=== PATIENT | male | born 1945 | race Caucasian/White ===

== ENCOUNTER → 2017-01-20 | Outpatient (REF) | payer OTHER ==
[~2017-01-20] MED LIST: ASPI81TA45; FISH1000; FLEXERIL; HYDROCODONE; MULTIVIT; NEUR300C; PERC5TAB8; PREVACID; VITAMIN D; ZEST20TA4; ZOCO40TA
[2017-01-20 19:25] LABS: ANION GAP 9 MEQ/L (8-16); BLOOD UREA NITROGEN 21 MG/DL (7-18); CALCIUM LEVEL 9.3 MG/DL (8.8-10.2); CARBON DIOXIDE LEVEL 28 MEQ/L (21-32); CHLORIDE LEVEL 104 MEQ/L (98-107); CREATININE FOR GFR 0.72 MG/DL (0.70-1.30); GLOMERULAR FILTRATION RATE > 60.0 (>49); GLUCOSE, FASTING 105 MG/DL (80-110); POTASSIUM SERUM 4.7 MEQ/L (3.5-5.1); SODIUM LEVEL 141 MEQ/L (136-145)
== END ==
LOC: M SFHCPLAZ 11:24
PROVIDERS: ATTEND Family Medicine
DX: I10 Essential (primary) hypertension (principal)

== ENCOUNTER → 2017-02-18 | Outpatient (CLI) | payer OTHER ==
--- NOTE | 2017-02-18 11:49 | REP ---
Clinical: Lung screening. History smoking. Comparison: None Technique: Axial low-dose noncontrast images from the thoracic inlet to the upper abdomen using lung screening technique. Findings: Scattered bilateral partially calcified pleural plaques suggest sequelae of asbestosis. Multiple noncalcified nodules primarily identified in the right lower lobe measure up to 8.6 mm. No consolidation, pleural effusion or pneumothorax. Tracheobronchial tree is patent. Mediastinum demonstrates atherosclerotic changes of the coronary arteries without cardiomegaly. Impression: Lung-RADS category 4A-S. Few noncalcified nodules measuring up to 8.6 mm warrant 3-month follow-up and/or PET-CT. 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 Signed by Johny Sepulveda MD 02/18/2017 11:40 A
== END ==
LOC: M RAD 10:56
PROVIDERS: ATTEND Family Medicine
DX: Z72.0 Tobacco use (principal); Z12.2 Encounter for screening for malignant neoplasm of respiratory organs

== ENCOUNTER → 2017-05-14 | Outpatient (REF) | payer OTHER ==
[2017-05-14 13:34] LABS: BASO % 0.4 % (0.0-1.0); EOS # 0.2 K/mm3 (0.0-0.50); EOS % 2.4 % (0.0-3.0); LARGE UNSTAINED CELL # 0.1 K/mm3 (0.0-0.4); LARGE UNSTAINED CELL % 1.5 % (0.0-4.0); LYMPH # 1.7 K/mm3 (1.5-4.5); LYMPH % 15.5 % (24.0-44.0); MEAN CORPUSCULAR HEMOGLOBIN 31.3 pg (27.0-33.0); MEAN CORPUSCULAR HGB CONC 33.7 g/dl (32.0-36.5); MONO # 0.5 K/mm3 (0.0-0.8); MONO % 5.3 % (0.0-5.0); NEUTROPHILS # 7.5 K/mm3 (1.8-7.7); NEUTROPHILS % 75.1 % (36.0-66.0); PLATELET COUNT, AUTOMATED 293 k/mm3 (150-450); RED CELL DISTRIBUTION WIDTH 13.5 % (11.5-14.5)
[2017-05-14 13:50] LABS: ALBUMIN 3.6 GM/DL (3.2-5.2); ALBUMIN/GLOBULIN RATIO 1.13 (1.00-1.93); ALKALINE PHOSPHATASE 96 U/L (45-117); ALT/SGPT 37 U/L (12-78); ANION GAP 10 MEQ/L (8-16); AST/SGOT 25 U/L (15-37); BILIRUBIN,TOTAL 0.4 MG/DL (0.2-1.0); BLOOD UREA NITROGEN 18 MG/DL (7-18); CALCIUM LEVEL 8.5 MG/DL (8.8-10.2); CARBON DIOXIDE LEVEL 26 MEQ/L (21-32); CHLORIDE LEVEL 103 MEQ/L (98-107); CHOLESTEROL LEVEL 164 MG/DL (<200); CREATININE FOR GFR 0.81 MG/DL (0.70-1.30); GLOMERULAR FILTRATION RATE > 60.0 (>42); GLUCOSE, FASTING 146 MG/DL (83-110); POTASSIUM SERUM 4.4 MEQ/L (3.5-5.1); SODIUM LEVEL 139 MEQ/L (136-145); TOTAL PROTEIN 6.8 GM/DL (6.4-8.2); TRIGLYCERIDES LEVEL 278 MG/DL (<150)
== END ==
LOC: M SFHCPLAZ 11:35
PROVIDERS: ATTEND Nurse Practitioner Family
DX: I10 Essential (primary) hypertension (principal); R73.01 Impaired fasting glucose; E78.5 Hyperlipidemia, unspecified

== ENCOUNTER → 2017-05-28 | Outpatient (CLI) | payer OTHER ==
[~2017-05-28] MED LIST changes: +ISOVUE-370 76% 100ML VIAL (Q9967) As Ordered ONE
--- NOTE | 2017-05-28 14:46 | REP ---
Clinical: Follow-up pulmonary nodule. Comparison: 02/18/2017. Technique: Axial contrast enhanced images from the thoracic inlet to the upper abdomen using 100 ml Isovue 370 intravenous contrast material with coronal and sagittal re-formations. Findings: Scattered partially calcified pleural plaques are again noted along with stable few small noncalcified nodules - the largest again identified in the posterior periphery of the right lower lobe measuring 8 mm diameter. No new consolidation, significant nodule or mass lesion is appreciated. No pleural effusion/reaction. Tracheobronchial tree is patent. Mediastinum demonstrates atherosclerotic changes to the thoracic aorta and coronary arteries without aortic aneurysm or cardiomegaly. No pericardial effusion is appreciated. A suspected small pericardial cyst versus bronchogenic cyst posterior to the heart measures 4.4 x 2.5 cm and is unchanged. Surrounding musculoskeletal structures are intact and without focal osseous abnormality. Limited upper abdomen demonstrates normal bilateral adrenal glands. Impression: 1. Stable pleuroparenchymal changes including scattered partially calcified pleural plaques and small nodules up to 8 mm in the posterior right lower lobe. 2. No new acute process identified. 3. Stable cystic structure in the middle mediastinum posterior to the heart appears relatively benign and may represent bronchogenic cyst versus pericardial cyst. Signed by Johny Sepulveda MD 05/28/2017 02:37 P
== END ==
LOC: M RAD 13:30
PROVIDERS: ATTEND Family Medicine
DX: J92.0 Pleural plaque with presence of asbestos (principal); R93.8 Abnormal findings on diagnostic imaging of other specified body structures
CPT/HCPCS: 71260; Q9967

== ENCOUNTER → 2017-08-21 | Outpatient (REF) | payer OTHER ==
[~2017-08-21] MED LIST changes: -ISOVUE-370 76% 100ML VIAL (Q9967) As Ordered ONE
== END ==
LOC: M LAB REF 07:26
PROVIDERS: ATTEND Family Medicine
DX: R73.9 Hyperglycemia, unspecified (principal)

== ENCOUNTER → 2017-11-24 | Outpatient (REF) | payer OTHER ==
[2017-11-24 17:14] LABS: ESTIMATED AVERAGE GLUCOSE 137 MG/DL (60-110); HEMOGLOBIN A1c 6.4 %
[2017-11-24 17:20] LABS: CREATININE, URINE 60.1 MG/DL; MAU/CREAT RATIO 13.3 MCG/MG (0.0-30.0)
== END ==
LOC: M SFHCPLAZ 09:41
DX: E11.9 Type 2 diabetes mellitus without complications (principal)
CPT/HCPCS: 83036

== ENCOUNTER 2018-02-14 20:28 | Inpatient (IN) | payer OTHER ==
[2018-02-14 21:09] LABS: BASO # 0.1 10^3/uL (0.0-0.2); BASO % 0.2 % (0.0-1.0); EOS % 0.1 % (0.0-3.0); HEMATOCRIT 50.2 % (42.0-52.0); IMMATURE GRANULOCYTE % 0.9 % (0-3.0); LYMPH # 2.6 10^3/uL (1.5-4.5); LYMPH % 10.7 % (24.0-44.0); MEAN CORPUSCULAR HEMOGLOBIN 30.5 pg (27.0-33.0); MEAN CORPUSCULAR HGB CONC 33.9 g/dl (32.0-36.5); MONO % 9.6 % (0.0-5.0); NEUTROPHILS # 18.9 10^3/uL (1.8-7.7); NEUTROPHILS % 78.5 % (36.0-66.0); PLATELET COUNT, AUTOMATED 274 10^3/uL (150-450); RED BLOOD COUNT 5.58 10^6/uL (4.30-6.10); RED CELL DISTRIBUTION WIDTH 14.1 % (11.5-14.5)
[2018-02-14 21:21] LABS: INR 1.01; PROTHROMBIN TIME 13.4 SECONDS (12.4-14.5)
[2018-02-14 21:22] LABS: PARTIAL THROMBOPLASTIN TIME 36.7 SECONDS (26.8-37.9)
[2018-02-14] MEDS: NS 1,000 ML IV (21:24)
[2018-02-14] MEDS: MORPHINE 4 MG/ML 1ML VIAL (J2270) IV ×2 (21:25→22:26)
[2018-02-14] MEDS: ONDANSETRON 4MG/2ML VIAL (J2405) IV (21:25)
[2018-02-14 21:33] LABS: ALBUMIN 3.6 GM/DL (3.2-5.2); ALBUMIN/GLOBULIN RATIO 0.82 (1.00-1.93); ALKALINE PHOSPHATASE 97 U/L (45-117); ALT/SGPT 22 U/L (12-78); ANION GAP 9 MEQ/L (8-16); AST/SGOT 11 U/L (7-37); BILIRUBIN,DIRECT 0.3 MG/DL (0.0-0.2); BILIRUBIN,TOTAL 1.2 MG/DL (0.2-1.0); BLOOD UREA NITROGEN 21 MG/DL (7-18); CARBON DIOXIDE LEVEL 27 MEQ/L (21-32); CHLORIDE LEVEL 103 MEQ/L (98-107); CREATININE FOR GFR 0.93 MG/DL (0.70-1.30); GLOMERULAR FILTRATION RATE > 60.0 (>42); GLUCOSE, FASTING 103 MG/DL (70-100); LIPASE 51 U/L (73-393); POTASSIUM SERUM 3.7 MEQ/L (3.5-5.1); SODIUM LEVEL 139 MEQ/L (136-145)
[2018-02-14 21:35] LABS: MONO # 2.3 10^3/uL (0.0-0.8)
[2018-02-14 21:36] LABS: POSITIVE DIFF POS FLAG
[2018-02-14] MEDS ORDERED: ISOVUE-370 76% 100ML VIAL (Q9967) As Ordered (21:44)
[2018-02-14] MEDS: NS 3,070 ML in APPROPRIATE DILUENT 1 EA IV (23:30)
[2018-02-14] MEDS: CIPROFLOXACIN 400 MG in APPROPRIATE DILUENT 1 EA IV (23:35)
[2018-02-14 23:40] LABS: LACTIC ACID SEPSIS PROTOCOL 1.3 MMOL/L (0.4-2.0)
[2018-02-15] MEDS ORDERED: ONDANSETRON 4MG/2ML VIAL (J2405) IV (00:15)
[2018-02-15] MEDS: metroNIDAZOLE 500 MG in APPROPRIATE DILUENT 1 EA IV (01:45)
[2018-02-15] MEDS: NS 1,000 ML IV ×2 (02:55→10:08)
[2018-02-15] MEDS: MORPHINE 4 MG/ML 1ML VIAL (J2270) IV ×5 (04:12→20:10)
[2018-02-15 08:09] LABS: BASO % 0.1 % (0.0-1.0); EOS % 0.1 % (0.0-3.0); HEMATOCRIT 43.4 % (42.0-52.0); IMMATURE GRANULOCYTE % 0.6 % (0-3.0); LYMPH # 1.3 10^3/uL (1.5-4.5); LYMPH % 5.6 % (24.0-44.0); MEAN CORPUSCULAR HEMOGLOBIN 30.5 pg (27.0-33.0); MEAN CORPUSCULAR HGB CONC 33.6 g/dl (32.0-36.5); MEAN CORPUSCULAR VOLUME 90.6 fl (80.0-96.0); NEUTROPHILS # 18.7 10^3/uL (1.8-7.7); NEUTROPHILS % 82.6 % (36.0-66.0); PLATELET COUNT, AUTOMATED 237 10^3/uL (150-450); RED BLOOD COUNT 4.79 10^6/uL (4.30-6.10); RED CELL DISTRIBUTION WIDTH 14.1 % (11.5-14.5); WHITE BLOOD COUNT 22.7 10^3/uL (4.0-10.0)
[2018-02-15 08:36] LABS: ALBUMIN 2.9 GM/DL (3.2-5.2); ALBUMIN/GLOBULIN RATIO 0.97 (1.00-1.93); ALKALINE PHOSPHATASE 80 U/L (45-117); ALT/SGPT 17 U/L (12-78); ANION GAP 8 MEQ/L (8-16); AST/SGOT 8 U/L (7-37); BILIRUBIN,TOTAL 1.1 MG/DL (0.2-1.0); BLOOD UREA NITROGEN 15 MG/DL (7-18); CALCIUM LEVEL 7.9 MG/DL (8.8-10.2); CARBON DIOXIDE LEVEL 26 MEQ/L (21-32); CHLORIDE LEVEL 107 MEQ/L (98-107); GLOMERULAR FILTRATION RATE > 60.0 (>42); GLUCOSE, FASTING 125 MG/DL (70-100); POTASSIUM SERUM 3.9 MEQ/L (3.5-5.1); SODIUM LEVEL 141 MEQ/L (136-145); TOTAL PROTEIN 5.9 GM/DL (6.4-8.2)
[2018-02-15 08:45] LABS: HEMOGLOBIN 14.6 g/dl (14.0-18.0); MONO # 2.5 10^3/uL (0.0-0.8); POSITIVE DIFF POS FLAG
[2018-02-15] MEDS: ENOXAPARIN 40 MG/0.4 ML SYRINGE (J1650) SC (09:00)
[2018-02-15 09:23] LABS: LACTIC ACID SEPSIS PROTOCOL 1.3 MMOL/L (0.4-2.0)
[2018-02-15] MEDS: PANTOPRAZOLE 40MG INJ (PROTONIX) (C9113) IV (09:35)
[2018-02-15] MEDS: metroNIDAZOLE 750 MG in APPROPRIATE DILUENT 1 EA IV ×2 (11:30→17:44)
[2018-02-15 11:52] LABS: HEMOGLOBIN 14.1 g/dl (14.0-18.0); MEAN CORPUSCULAR HEMOGLOBIN 30.5 pg (27.0-33.0); MEAN CORPUSCULAR HGB CONC 33.6 g/dl (32.0-36.5); MEAN CORPUSCULAR VOLUME 90.7 fl (80.0-96.0); PLATELET COUNT, AUTOMATED 227 10^3/uL (150-450); RED BLOOD COUNT 4.63 10^6/uL (4.30-6.10); RED CELL DISTRIBUTION WIDTH 14.2 % (11.5-14.5)
[2018-02-15] MEDS: CIPROFLOXACIN 400 MG in APPROPRIATE DILUENT 1 EA IV ×2 (12:52→23:29)
[2018-02-15 17:20] LABS: HEMOGLOBIN 13.7 g/dl (14.0-18.0); MEAN CORPUSCULAR HEMOGLOBIN 30.7 pg (27.0-33.0); MEAN CORPUSCULAR HGB CONC 33.4 g/dl (32.0-36.5); MEAN CORPUSCULAR VOLUME 91.9 fl (80.0-96.0); PLATELET COUNT, AUTOMATED 200 10^3/uL (150-450); RED BLOOD COUNT 4.46 10^6/uL (4.30-6.10); RED CELL DISTRIBUTION WIDTH 14.3 % (11.5-14.5); WHITE BLOOD COUNT 20.8 10^3/uL (4.0-10.0)
[2018-02-15 23:25] LABS: HEMATOCRIT 39.1 % (42.0-52.0); HEMOGLOBIN 12.9 g/dl (14.0-18.0); MEAN CORPUSCULAR HEMOGLOBIN 30.4 pg (27.0-33.0); MEAN CORPUSCULAR VOLUME 92.2 fl (80.0-96.0); PLATELET COUNT, AUTOMATED 200 10^3/uL (150-450); RED BLOOD COUNT 4.24 10^6/uL (4.30-6.10); RED CELL DISTRIBUTION WIDTH 14.1 % (11.5-14.5); WHITE BLOOD COUNT 17.9 10^3/uL (4.0-10.0)
[2018-02-16] MEDS: metroNIDAZOLE 750 MG in APPROPRIATE DILUENT 1 EA IV ×3 (00:28→17:09)
[2018-02-16] MEDS: MORPHINE 4 MG/ML 1ML VIAL (J2270) IV ×3 (00:38→05:45)
[2018-02-16] MEDS: NS 1,000 ML IV ×3 (05:34→15:01)
[2018-02-16 06:09] LABS: HEMATOCRIT 38.7 % (42.0-52.0); HEMOGLOBIN 12.8 g/dl (14.0-18.0); MEAN CORPUSCULAR HEMOGLOBIN 30.7 pg (27.0-33.0); MEAN CORPUSCULAR HGB CONC 33.1 g/dl (32.0-36.5); MEAN CORPUSCULAR VOLUME 92.8 fl (80.0-96.0); PLATELET COUNT, AUTOMATED 202 10^3/uL (150-450); RED BLOOD COUNT 4.17 10^6/uL (4.30-6.10); WHITE BLOOD COUNT 17.4 10^3/uL (4.0-10.0)
[2018-02-16 06:24] LABS: ANION GAP 6 MEQ/L (8-16); BLOOD UREA NITROGEN 13 MG/DL (7-18); CALCIUM LEVEL 8.1 MG/DL (8.8-10.2); CARBON DIOXIDE LEVEL 26 MEQ/L (21-32); CHLORIDE LEVEL 109 MEQ/L (98-107); CREATININE FOR GFR 0.46 MG/DL (0.70-1.30); GLOMERULAR FILTRATION RATE > 60.0 (>42); GLUCOSE, FASTING 97 MG/DL (70-100); POTASSIUM SERUM 3.6 MEQ/L (3.5-5.1); SODIUM LEVEL 141 MEQ/L (136-145)
[2018-02-16] MEDS: ENOXAPARIN 40 MG/0.4 ML SYRINGE (J1650) SC (09:00)
[2018-02-16] MEDS: NORCO, ANEXSIA 5/325MG TABLET (HYDROcodone/ACETAMINOPHEN) PO ×3 (09:09→21:05)
[2018-02-16] MEDS: PANTOPRAZOLE 40MG INJ (PROTONIX) (C9113) IV (09:10)
[2018-02-16 11:46] LABS: HEMATOCRIT 39.4 % (42.0-52.0); MEAN CORPUSCULAR HEMOGLOBIN 30.1 pg (27.0-33.0); MEAN CORPUSCULAR VOLUME 91.2 fl (80.0-96.0); PLATELET COUNT, AUTOMATED 214 10^3/uL (150-450); RED BLOOD COUNT 4.32 10^6/uL (4.30-6.10); WHITE BLOOD COUNT 16.4 10^3/uL (4.0-10.0)
[2018-02-16] MEDS: CIPROFLOXACIN 400 MG in APPROPRIATE DILUENT 1 EA IV (12:18)
[2018-02-16] MEDS: NICOTINE 21MG/24HR 1 EA TRANSDERMAL TD (15:02)
[2018-02-16 17:21] LABS: HEMATOCRIT 37.6 % (42.0-52.0); HEMOGLOBIN 12.4 g/dl (14.0-18.0); MEAN CORPUSCULAR HEMOGLOBIN 30.4 pg (27.0-33.0); MEAN CORPUSCULAR VOLUME 92.2 fl (80.0-96.0); PLATELET COUNT, AUTOMATED 215 10^3/uL (150-450); RED BLOOD COUNT 4.08 10^6/uL (4.30-6.10); RED CELL DISTRIBUTION WIDTH 13.9 % (11.5-14.5); WHITE BLOOD COUNT 14.6 10^3/uL (4.0-10.0)
[2018-02-16 23:24] LABS: HEMATOCRIT 37.1 % (42.0-52.0); HEMOGLOBIN 12.1 g/dl (14.0-18.0); MEAN CORPUSCULAR HEMOGLOBIN 29.9 pg (27.0-33.0); MEAN CORPUSCULAR HGB CONC 32.6 g/dl (32.0-36.5); MEAN CORPUSCULAR VOLUME 91.6 fl (80.0-96.0); PLATELET COUNT, AUTOMATED 215 10^3/uL (150-450); RED BLOOD COUNT 4.05 10^6/uL (4.30-6.10); RED CELL DISTRIBUTION WIDTH 13.8 % (11.5-14.5); WHITE BLOOD COUNT 12.4 10^3/uL (4.0-10.0)
[2018-02-17] MEDS: CIPROFLOXACIN 400 MG in APPROPRIATE DILUENT 1 EA IV ×2 (00:32→12:16)
[2018-02-17] MEDS: metroNIDAZOLE 750 MG in APPROPRIATE DILUENT 1 EA IV ×3 (01:31→17:38)
[2018-02-17] MEDS: NS 1,000 ML IV ×4 (01:32→22:29)
[2018-02-17] MEDS: NORCO, ANEXSIA 5/325MG TABLET (HYDROcodone/ACETAMINOPHEN) PO ×4 (03:46→21:58)
[2018-02-17 05:45] LABS: HEMATOCRIT 36.6 % (42.0-52.0); MEAN CORPUSCULAR HEMOGLOBIN 29.9 pg (27.0-33.0); MEAN CORPUSCULAR HGB CONC 32.8 g/dl (32.0-36.5); MEAN CORPUSCULAR VOLUME 91.3 fl (80.0-96.0); PLATELET COUNT, AUTOMATED 211 10^3/uL (150-450); RED BLOOD COUNT 4.01 10^6/uL (4.30-6.10); RED CELL DISTRIBUTION WIDTH 13.7 % (11.5-14.5); WHITE BLOOD COUNT 11.1 10^3/uL (4.0-10.0)
[2018-02-17 06:03] LABS: ANION GAP 8 MEQ/L (8-16); BLOOD UREA NITROGEN 12 MG/DL (7-18); CALCIUM LEVEL 7.8 MG/DL (8.8-10.2); CARBON DIOXIDE LEVEL 25 MEQ/L (21-32); CHLORIDE LEVEL 109 MEQ/L (98-107); CREATININE FOR GFR 0.43 MG/DL (0.70-1.30); GLOMERULAR FILTRATION RATE > 60.0 (>42); GLUCOSE, FASTING 91 MG/DL (70-100); POTASSIUM SERUM 3.3 MEQ/L (3.5-5.1); SODIUM LEVEL 142 MEQ/L (136-145)
[2018-02-17] MEDS: ENOXAPARIN 40 MG/0.4 ML SYRINGE (J1650) SC (09:00)
[2018-02-17] MEDS: PANTOPRAZOLE 40MG INJ (PROTONIX) (C9113) IV (09:40)
[2018-02-17] MEDS: NICOTINE 21MG/24HR 1 EA TRANSDERMAL TD (09:41)
[2018-02-17] MEDS ORDERED: ISOVUE-370 76% 100ML VIAL (Q9967) As Ordered (10:01)
[2018-02-17 11:42] LABS: MAGNESIUM LEVEL 1.9 MG/DL (1.8-2.4)
[2018-02-17] MEDS: POTASSIUM CHLORIDE 10 MEQ SR TABLET PO ×2 (12:16→15:50)
[2018-02-18] MEDS: CIPROFLOXACIN 400 MG in APPROPRIATE DILUENT 1 EA IV ×3 (00:18→23:35)
[2018-02-18] MEDS: metroNIDAZOLE 750 MG in APPROPRIATE DILUENT 1 EA IV ×3 (01:28→16:39)
[2018-02-18] MEDS: **hydrALAZINE** 10 MG TAB PO (03:44)
[2018-02-18] MEDS: NORCO, ANEXSIA 5/325MG TABLET (HYDROcodone/ACETAMINOPHEN) PO ×4 (03:45→23:35)
[2018-02-18 06:36] LABS: ANION GAP 8 MEQ/L (8-16); BLOOD UREA NITROGEN 7 MG/DL (7-18); CALCIUM LEVEL 8.1 MG/DL (8.8-10.2); CARBON DIOXIDE LEVEL 25 MEQ/L (21-32); CHLORIDE LEVEL 107 MEQ/L (98-107); CREATININE FOR GFR 0.49 MG/DL (0.70-1.30); GLOMERULAR FILTRATION RATE > 60.0 (>42); GLUCOSE, FASTING 97 MG/DL (70-100); POTASSIUM SERUM 3.6 MEQ/L (3.5-5.1); SODIUM LEVEL 140 MEQ/L (136-145)
[2018-02-18] MEDS: NS 1,000 ML IV (08:29)
[2018-02-18] MEDS: NICOTINE 21MG/24HR 1 EA TRANSDERMAL TD (08:30)
[2018-02-18] MEDS: PANTOPRAZOLE 40MG INJ (PROTONIX) (C9113) IV (08:30)
[2018-02-18] MEDS: ENOXAPARIN 40 MG/0.4 ML SYRINGE (J1650) SC (09:00)
[2018-02-19] MEDS: metroNIDAZOLE 750 MG in APPROPRIATE DILUENT 1 EA IV ×2 (00:54→09:33)
[2018-02-19] MEDS: NORCO, ANEXSIA 5/325MG TABLET (HYDROcodone/ACETAMINOPHEN) PO ×3 (05:54→20:28)
[2018-02-19 06:00] LABS: HEMATOCRIT 40.3 % (42.0-52.0); HEMOGLOBIN 13.8 g/dl (13.5-17.5); MEAN CORPUSCULAR HEMOGLOBIN 30.5 pg (27.0-33.0); MEAN CORPUSCULAR HGB CONC 34.2 g/dl (32.0-36.5); PLATELET COUNT, AUTOMATED 269 10^3/uL (150-450); RED BLOOD COUNT 4.53 10^6/uL (4.30-6.10); RED CELL DISTRIBUTION WIDTH 13.2 % (11.5-14.5); WHITE BLOOD COUNT 8.5 10^3/uL (4.0-10.0)
[2018-02-19 06:24] LABS: ANION GAP 5 MEQ/L (8-16); BLOOD UREA NITROGEN 6 MG/DL (7-18); CALCIUM LEVEL 8.3 MG/DL (8.8-10.2); CARBON DIOXIDE LEVEL 29 MEQ/L (21-32); CHLORIDE LEVEL 106 MEQ/L (98-107); CREATININE FOR GFR 0.56 MG/DL (0.70-1.30); GLOMERULAR FILTRATION RATE > 60.0 (>42); GLUCOSE, FASTING 101 MG/DL (70-100); POTASSIUM SERUM 3.3 MEQ/L (3.5-5.1); SODIUM LEVEL 140 MEQ/L (136-145)
[2018-02-19] MEDS: ENOXAPARIN 40 MG/0.4 ML SYRINGE (J1650) SC (09:32)
[2018-02-19] MEDS: PANTOPRAZOLE 40MG INJ (PROTONIX) (C9113) IV (09:32)
[2018-02-19] MEDS: NICOTINE 21MG/24HR 1 EA TRANSDERMAL TD (09:33)
[2018-02-19] MEDS: POTASSIUM CHLORIDE 10 MEQ SR TABLET PO (12:39)
[2018-02-19] MEDS: LOSARTAN 50 MG TAB PO (12:40)
[2018-02-19] MEDS ORDERED: fentaNYL 100 MCG/2 ML INJECTION (J3010) As Ordered (15:04)
[2018-02-19] MEDS ORDERED: MIDAZOLAM INJ 2 MG/2 ML VIAL (J2250) As Ordered (15:04)
[2018-02-19] MEDS ORDERED: PROTAMINE SULF INJ 50 MG/5 ML VIAL (J2720) As Ordered (15:13)
[2018-02-20] MEDS: NORCO, ANEXSIA 5/325MG TABLET (HYDROcodone/ACETAMINOPHEN) PO ×3 (01:35→12:37)
[2018-02-20 06:15] LABS: HEMATOCRIT 43.6 % (42.0-52.0); HEMOGLOBIN 14.6 g/dl (13.5-17.5); MEAN CORPUSCULAR HEMOGLOBIN 30.2 pg (27.0-33.0); MEAN CORPUSCULAR HGB CONC 33.5 g/dl (32.0-36.5); MEAN CORPUSCULAR VOLUME 90.3 fl (80.0-96.0); PLATELET COUNT, AUTOMATED 298 10^3/uL (150-450); RED BLOOD COUNT 4.83 10^6/uL (4.30-6.10); RED CELL DISTRIBUTION WIDTH 13.3 % (11.5-14.5); WHITE BLOOD COUNT 8.5 10^3/uL (4.0-10.0)
[2018-02-20 06:29] LABS: ANION GAP 7 MEQ/L (8-16); BLOOD UREA NITROGEN 9 MG/DL (7-18); CALCIUM LEVEL 8.8 MG/DL (8.8-10.2); CARBON DIOXIDE LEVEL 27 MEQ/L (21-32); CHLORIDE LEVEL 105 MEQ/L (98-107); CREATININE FOR GFR 0.54 MG/DL (0.70-1.30); GLOMERULAR FILTRATION RATE > 60.0 (>42); GLUCOSE, FASTING 99 MG/DL (70-100); POTASSIUM SERUM 3.6 MEQ/L (3.5-5.1); SODIUM LEVEL 139 MEQ/L (136-145)
[2018-02-20] MEDS: PANTOPRAZOLE 40MG INJ (PROTONIX) (C9113) IV (10:37)
[2018-02-20] MEDS: LOSARTAN 50 MG TAB PO (10:37)
[2018-02-20] MEDS: ENOXAPARIN 40 MG/0.4 ML SYRINGE (J1650) SC (10:38)
[2018-02-20] MEDS: NICOTINE 21MG/24HR 1 EA TRANSDERMAL TD (10:39)
== END 2018-02-20 12:40 | disposition home or self-care (01) | DRG 357 ==
LOC: M ED INP 02-15 00:08 → M MSPAV 02-15 15:08 → M ED 20:28
PROC: 04753DZ Dilation of Superior Mesenteric Artery with Intraluminal Device, Percutaneous Approach (ICD-10-PCS; principal; 2018-02-19)
PROC: 04713DZ Dilation of Celiac Artery with Intraluminal Device, Percutaneous Approach (ICD-10-PCS; 2018-02-19)
DX: K55.059 Acute (reversible) ischemia of intestine, part and extent unspecified (principal); K62.5 Hemorrhage of anus and rectum; K55.1 Chronic vascular disorders of intestine; I10 Essential (primary) hypertension; I70.1 Atherosclerosis of renal artery; E78.5 Hyperlipidemia, unspecified; R73.03 Prediabetes; M54.5 Low back pain; F17.210 Nicotine dependence, cigarettes, uncomplicated; Z79.82 Long term (current) use of aspirin; Z79.899 Other long term (current) drug therapy; Z79.891 Long term (current) use of opiate analgesic; E87.6 Hypokalemia

== ENCOUNTER → 2018-04-26 | Outpatient (REF) | payer OTHER ==
[2018-04-26 16:41] LABS: ESTIMATED AVERAGE GLUCOSE 131 MG/DL (60-110); HEMOGLOBIN A1c 6.2 %
== END ==
LOC: M SFHCPLAZ 11:59
DX: E11.9 Type 2 diabetes mellitus without complications (principal)
CPT/HCPCS: 83036

== ENCOUNTER → 2018-08-25 | Outpatient (REF) | payer OTHER ==
[2018-08-25 15:27] LABS: CHOLESTEROL LEVEL 178 MG/DL (<200); CHOLESTEROL RISK RATIO 5.562 (<5); HDL CHOLESTEROL 32 MG/DL (>40); LDL CHOLESTEROL 91 MG/DL (<100); NON-HDL-C 146 MG/DL; TRIGLYCERIDES LEVEL 275 MG/DL (<150)
[2018-08-25 15:39] LABS: CREATININE, URINE 95.1 MG/DL; MALB URINE SIEMENS 17.9 MG/L
[2018-08-25 15:42] LABS: MAU/CREAT RATIO 18.8 MCG/MG (0.0-30.0)
== END ==
LOC: M SFHCPLAZ 10:25
DX: K55.9 Vascular disorder of intestine, unspecified (principal); I73.9 Peripheral vascular disease, unspecified; E11.9 Type 2 diabetes mellitus without complications; I10 Essential (primary) hypertension

== ENCOUNTER → 2018-08-25 | Outpatient (CLI) | payer OTHER | LOC: M LRY 10:27 | DX: M19.041 Primary osteoarthritis, right hand (principal); K55.9 Vascular disorder of intestine, unspecified; I73.9 Peripheral vascular disease, unspecified; E11.9 Type 2 diabetes mellitus without complications; I10 Essential (primary) hypertension | CPT/HCPCS: 80061 ==

== ENCOUNTER → 2018-09-27 | Outpatient (CLI) | payer OTHER | LOC: M RAD 09:04 | DX: Z12.2 Encounter for screening for malignant neoplasm of respiratory organs (principal); Z87.891 Personal history of nicotine dependence; Z77.090 Contact with and (suspected) exposure to asbestos | CPT/HCPCS: G0297 ==

== ENCOUNTER → 2018-10-15 | Outpatient (CLI) | payer OTHER | LOC: M LRY 13:17 | DX: S79.911A Unspecified injury of right hip, initial encounter (principal); S39.92XA Unspecified injury of lower back, initial encounter; X58.XXXA Exposure to other specified factors, initial encounter; Y92.89 Other specified places as the place of occurrence of the external cause; M85.88 Other specified disorders of bone density and structure, other site; M25.78 Osteophyte, vertebrae | CPT/HCPCS: 72110; G0463 ==

== ENCOUNTER → 2018-12-27 | Outpatient (REF) | payer MEDICARE ==
[~2018-12-27] MED LIST changes: +ASPI1TAB PO; +ATOR80TA59 PO; +CLOP75TA2 PO; +CYCL10TA PO; +HYDR-3719 PO; +LIPI10TA PO; +LOSA100T50 PO; +NICO21PAT TD; +PREV1CAP PO; +blood pressure med
[2018-12-27 11:42] LABS: HEMOGLOBIN A1c 6.7 %
== END ==
LOC: M SFHCPLAZ 08:55
PROVIDERS: ATTEND Family Medicine
DX: E11.9 Type 2 diabetes mellitus without complications (principal)
CPT/HCPCS: 36415; 83036; G0463

== ENCOUNTER → 2019-01-07 | Outpatient (CLI) | payer MEDICARE ==
--- NOTE | 2019-01-07 10:30 | REP ---
Chest two views HISTORY: Cough Comparison: 04/17/2013 A small calcified density is present in the right upper lobe. The left lung is clear. The heart is normal in size. The pulmonary vasculature is normal in appearance. The bony structure is intact. IMPRESSION: No acute disease. Electronically Signed by Keegan Vaughn MD 01/07/2019 10:21 A
== END ==
LOC: M LRY 09:56
PROVIDERS: ATTEND Family Medicine
DX: R91.8 Other nonspecific abnormal finding of lung field (principal); R05 Cough
CPT/HCPCS: 71046; 87804; 94640; G0463

== ENCOUNTER → 2019-09-06 | Outpatient (REF) | payer MEDICARE ==
[~2019-09-06] MED LIST changes: -ASPI1TAB PO; +ASPI81TA26 PO
[2019-09-06 12:40] LABS: ALBUMIN 3.6 GM/DL (3.2-5.2); ALT/SGPT 24 U/L (12-78); BILIRUBIN,TOTAL 0.4 MG/DL (0.2-1.0); BLOOD UREA NITROGEN 13 MG/DL (7-18); CALCIUM LEVEL 9.4 MG/DL (8.8-10.2); CARBON DIOXIDE LEVEL 28 MEQ/L (21-32); CHLORIDE LEVEL 104 MEQ/L (98-107); CHOLESTEROL LEVEL 167 MG/DL (<200); CHOLESTEROL RISK RATIO 4.282 (<5); CREATININE FOR GFR 0.72 MG/DL (0.70-1.30); GLOMERULAR FILTRATION RATE > 60.0 (>42); GLUCOSE, FASTING 104 MG/DL (70-100); HDL CHOLESTEROL 39 MG/DL (>40); LDL CHOLESTEROL 84 MG/DL (<100); NON-HDL-C 128 MG/DL; POTASSIUM SERUM 4.8 MEQ/L (3.5-5.1); SODIUM LEVEL 139 MEQ/L (136-145); TOTAL PROTEIN 7.3 GM/DL (6.4-8.2); TRIGLYCERIDES LEVEL 222 MG/DL (<150)
[2019-09-06 12:49] LABS: HEMOGLOBIN A1c 6.4 %
[2019-09-06 12:56] LABS: CREATININE, URINE 68.5 MG/DL; MAU/CREAT RATIO 14.5 MCG/MG (0.0-30.0)
== END ==
LOC: M SFHCPLAZ 09:47
PROVIDERS: ATTEND Family Medicine
DX: E11.9 Type 2 diabetes mellitus without complications (principal); I10 Essential (primary) hypertension; E78.2 Mixed hyperlipidemia

== ENCOUNTER → 2019-10-06 | Outpatient (CLI) | payer MEDICARE ==
--- NOTE | 2019-10-07 02:57 | REP ---
Clinical: Lung screening. History smoking. Comparison: 09/27/2018 Technique: Axial low-dose noncontrast images from the thoracic inlet to the upper abdomen using lung screening technique. Findings: The lung smith are well-aerated. Chronic changes related to asbestosis including scattered partially calcified pleural plaques and small scattered nodules throughout the bilateral lung smith remain stable. No new significant consolidation or nodule/mass appreciated. No pleural effusion. No pneumothorax. Tracheobronchial tree is patent. Mediastinal structures appear stable. Impression: Lung-RADS category II-S. Changes related to asbestosis including stable scattered noncalcified nodules up to approximately 8 mm. Electronically Signed by Johny Sepulveda MD 10/07/2019 02:50 A
== END ==
LOC: M RAD 09:48
PROVIDERS: ATTEND Family Medicine
DX: Z12.2 Encounter for screening for malignant neoplasm of respiratory organs (principal); F17.210 Nicotine dependence, cigarettes, uncomplicated

== ENCOUNTER 2020-02-20 20:43 | Inpatient (IN) | payer MEDICARE ==
[~2020-02-20] VITALS: Ht 172.7 cm; Wt 86.4 kg
[2020-02-20] MEDS ORDERED: methylPREDNISolone INJ 125 MG/2 ML VIAL (J2930) IV ONE (21:15)
[2020-02-20 21:21] LABS: BASO % 0.3 % (0.0-1.0); EOS % 0.3 % (0.0-3.0); HEMATOCRIT 45.9 % (42.0-52.0); HEMOGLOBIN 15.2 g/dl (13.5-17.5); LYMPH # 1.9 10^3/uL (1.5-5.0); LYMPH % 14.6 % (24.0-44.0); MEAN CORPUSCULAR HGB CONC 33.1 g/dl (32.0-36.5); MEAN CORPUSCULAR VOLUME 90.7 fl (80.0-96.0); MONO % 7.6 % (0.0-5.0); NEUTROPHILS % 76.7 % (36.0-66.0); PLATELET COUNT, AUTOMATED 218 10^3/uL (150-450); RED BLOOD COUNT 5.06 10^6/uL (4.30-6.10); WHITE BLOOD COUNT 13.1 10^3/uL (4.0-10.0)
[2020-02-20] MEDS: ALBUTEROL 90 MCG/ACT 8GM HFA INHALER INH SCH ×3 (21:35→22:08)
[2020-02-20 21:45] LABS: ALBUMIN 3.5 GM/DL (3.2-5.2); ALT/SGPT 37 U/L (12-78); BILIRUBIN,DIRECT 0.2 MG/DL (0.0-0.2); BILIRUBIN,TOTAL 0.6 MG/DL (0.2-1.0); BLOOD UREA NITROGEN 13 MG/DL (7-18); CALCIUM LEVEL 8.8 MG/DL (8.8-10.2); CARBON DIOXIDE LEVEL 29 MEQ/L (21-32); CHLORIDE LEVEL 101 MEQ/L (98-107); CK-MB VALUE MASS < 1.0 NG/ML (<3.6); CPK CREATINE PHOSPHOKINASE 71 U/L (39-308); CREATININE FOR GFR 0.77 MG/DL (0.70-1.30); GLOMERULAR FILTRATION RATE > 60.0 (>42); GLUCOSE, FASTING 119 MG/DL (70-100); MB/CK RELATIVE INDEX 1.41 (< OR =4); NT-PRO BNP 19 PG/ML (<125); SODIUM LEVEL 137 MEQ/L (136-145); TOTAL PROTEIN 7.2 GM/DL (6.4-8.2); TROPONIN I < 0.02 NG/ML (< 0.10)
[2020-02-20] MEDS ORDERED: OMEGCAP4 PO (23:11)
[2020-02-20] MEDS ORDERED: VITMTA PO (23:11)
[2020-02-20] MEDS ORDERED: CLOP75TA2 PO (23:11)
[2020-02-20] MEDS ORDERED: VITAD1000T PO (23:11)
--- NOTE | 2020-02-20 23:46 | REPVR ---
PROCEDURE INFORMATION: Exam: CT Chest Without Contrast Exam date and time: 02/20/2020 10:36 PM Age: 74 years old Clinical indication: Fever; Additional info: Dyspnea, fever, HX asbestosis TECHNIQUE: Imaging protocol: Computed tomography of the chest without contrast. 3D rendering: MIP and/or 3D reconstructed images were created by the technologist. Radiation optimization: All CT scans at this facility use at least one of these dose optimization techniques: automated exposure control; mA and/or kV adjustment per patient size (includes targeted exams where dose is matched to clinical indication); or iterative reconstruction. COMPARISON: CT Chest with contrast 05/28/2017 1:58 PM FINDINGS: Limited study without IV contrast. Atherosclerotic change in the thoracic aorta without dilatation. Coronary vascular calcifications are also present. Small non-specific mediastinal lymph nodes are present. No enlarged nodes. No pleural effusion, pneumothorax, cardiac enlargement, pericardial effusion or pulmonary edema. Calcified bilateral pleural plaques are present. Ill-defined airspace opacities are present in the lingula and left lower lobe, and there are scattered bilateral lung nodules in subpleural location, the largest being 7 mm in the right lower lobe, image 45. No central endobronchial lesion. Liver is decreased in density, consistent with fatty infiltration. Bony structures show no acute fracture or destructive process. IMPRESSION: Patchy infiltrates in the lingula and left lower lobe suggesting multifocal pneumonia. Underlying S best S related pleural disease. Multiple subpleural nodules, nonspecific appearance. The largest measures 7 mm. Fleischner society recommendations for followup and management of nodules smaller than 8 mm detected incidentally on screening CT: Less than or equal to 4 mm: Low risk patients- no followup needed. High risk patients- followup in 12 months. If no change, no further imaging needed. 4-6 mm nodule: Low risk patients- followup in 12 months. If no change, no further imaging needed. High risk patients- initial followup CT at 6-12 months and then at 18-24 months if no change. 6-8 mm nodule: Low-risk patients- initial followup CT in 6-12 months and then 18-24 months if no change. High risk patients- initial followup CT in 3-6 months and then at 9-12 and 24 months if no change. >8 mm: Low-risk patients- followup CTs at around 3, 9, and 24 months versus dynamic contrast-enhanced CT, PET, and/or biopsy. High-risk patients- same as for low-risk patients. Electronically signed by: Alejo Bowie On 02/20/2020 23:46:21 PM
[2020-02-21] MEDS ORDERED: DEXTROSE 50% 50 ML SYRINGE IV PRN (00:15)
[2020-02-21] MEDS ORDERED: MAALOX 30 ML SUSP *UDC PO PRN (00:15)
[2020-02-21] MEDS ORDERED: ALBUTEROL 90 MCG/ACT 8GM HFA INHALER INH PRN (00:15)
[2020-02-21] MEDS ORDERED: ACETAMINOPHEN TAB 650MG DOSE (2X325MG) PO PRN (00:15)
[2020-02-21] MEDS ORDERED: MOM 30ML SUSPENSION UDC PO PRN (00:15)
[2020-02-21] MEDS ORDERED: GLUCOSE 4 GM CHEW TABLET PO PRN (00:15)
[2020-02-21] MEDS ORDERED: GLUCAGON FOR INJ 1 MG VIAL (J1610) SC PRN (00:15)
--- NOTE | 2020-02-21 00:37 | HPEPDOC ---
General Date of Admission Date of Service: Feb 21, 2020 Chief Complaint The patient is a 74-year-old male admitted with a reason for visit of SOB. Source: Patient Exam Limitations: No limitations Timing/Duration: Day(s) (2) Severity: Moderate Associated Symptoms: Cough, Shortness of breath History of Present Illness 74-year-old male with past medical history of hypertension, hyperlipidemia for GI bleed presents for worsening dyspnea on exertion over the past 2 days. Patient reports that he was in his normal state of health approximately 2 days ago when he began to experience labored breathing. He says that he was unable to walk as far as his previous baseline. He also noted some worsening cough and some increased wheezing. Patient denied any recent fevers, chills but did endo rse having some sweats that was unusual for him. Patient reports multiple sick contacts within his house as he lives with his 9 children. There has been some upper respiratory infection-like symptoms in 3 of his kids. This morning, patient was unable to ambulate further than 20 feet and was severely short of breath. He used the albuterol inhaler approximately 4-5 times with little relief. Given his symptoms, his told him to go to the ER for further evaluation. His cough is sometimes productive with brown sputum. He denies any chest pain, palpitations, headaches, abdominal pain, diarrhea, constipation, leg swelling. Patient is a heavy smoker and still actively smoking 1 pack per day. He has 60+ pack year history at this time. Patient currently does not use oxygen at home. He currently lives with his family and is retired. 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 He denies any alcohol or drug use. Home Medications Scheduled Aspirin (Aspirin EC) 81 Mg Tab, 81 MG PO DAILY, (Reported) Atorvastatin Calcium (Atorvastatin Calcium) 80 Mg Tab, 80 MG PO QPM, (Reported) TAKES AT DINNER Cholecalciferol (Vitamin D3) (Vitamin D3) 1,000 Unit Tablet, 1,000 UNITS PO DAILY, (Reported) Clopidogrel Bisulfate (Clopidogrel) 75 Mg Tablet, 75 MG PO DAILY, (Reported) Lansoprazole (Prevacid) 30 Mg Cap, 30 MG PO DAILY, (Reported) Losartan Potassium (Losartan Potassium) 100 Mg Tab, 100 MG PO DAILY, (Reported) Multivitamins (Thera M Plus Tablet) 1 Each Tablet, 1 TAB PO DAILY, (Reported) [place]-3/Dha/Epa/Fish Oil ([place]-3 Fish Oil 1,000 mg Sfgl) 1,000 Mg Capsule, 1 CAP PO DAILY, (Reported) Scheduled PRN Cyclobenzaprine HCl (Cyclobenzaprine HCl) 10 Mg Tab, 10 MG PO QID PRN for MUSCLE SPASMS, (Reported) Hydrocodone/Acetaminophen (Hydrocodone-Acetamin 10-325 mg) 1 Tab Tab, 1 TAB PO Q3HP PRN for PAIN, (Reported) Allergies Coded Allergies: No Known Drug Allergies (Verified Allergy, Unknown, 02/20/20) Past Medical History Medical History Hypertension, hyperlipidemia, COPD not requiring home oxygen, GI bleed Surgical History Stent placement in his abdomen Family History Significant Family History: Cancer, Lung disease Father of throat cancer from heavy smoking and drinking. Mother from complications of pelvic fracture when she was elderly. Patient does not believe he had any chronic illnesses. Social History * Smoker: current smoker (more than 60+-pack-year smoking history and currently smokes 1 pack per day) Alcohol: Denies Drugs: denies Recent Travel/Sick Contacts: Reports: Recent sick contacts (3 is 9 children who currently live in the house have upper respiratory like symptoms); Denies: Recent travel Psychosocial History: No pertinent psych hx Lives with his family. Independent in all his ADLs and IADLs. Has former occupational exposure with his best dose when he was younger. A-FIB/CHADSVASC A-FIB History Current/History of A-Fib/PAF?: No Review of Systems Constitutional: Denies: Chills, Fever, Malaise, Weakness, Fatigue Eyes: Denies: Pain, Vision change, Conjunctivae inflammation ENT: Denies: Head Aches, Ear Pain, Sore Throat Skin: Denies: Rash, Lesions, Jaundice Pulmonary: Reports: Dyspnea, Cough; Denies: Pleuritic Chest Pain Cardiovascular: Denies: Chest Pain, Palpitations, Orthopnea, Edema, Lt Head edness Gastrointestinal: Denies: Nausea, Vomiting, Abdominal Pain, Diarrhea, C onstipation Genitourinary: Denies: Dysuria, Frequency Hematologic: Denies: Bruising Musculoskeletal: Reports: Back Pain (chronic), Joint Pain Neurological: Denies: Weakness, Numbness, Change in speech, Confusion Psych: Reports: Mood Normal Physical Examination General Exam: Positive: Alert, Cooperative, No Acute Distress, Other (able to speak in 5-7 word sentences with minimal shortness of breath. Appears stated age. Pleasant.) Eye Exam: Positive: PERRLA, Conjunctiva & lids normal, EOMI; Negative: Sclera icteric ENT Exam: Positive: Atraumatic, Mucous membr. moist/pink, Pharynx Normal Neck Exam: Positive: Supple, +2 carotid pulse wo bruit; Negative: JVD, thyromegaly Chest Exam: Positive: Other (diffuse expiratory wheezing noted in bilateral lung smith. Crackles appreciated in lower left lobe.) Heart Exam: Positive: Tachycardic (2 100 bpm), Regular Rhythm, Normal S1, Normal S2; Negative: Murmurs Abdomen Exam: Positive: Normal bowel sounds, Soft; Negative: Tenderness, Hepatospenomegaly Extremity Exam: Positive: Normal pulses; Negative: Clubbing, Edema Skin Exam: Positive: Nl turgor and temperature; Negative: Rash, Breakdown Neuro Exam: Positive: Normal Gait, Normal Speech, Strength at 5/5 X4 ext, Normal Tone, Cranial Nerves 3-12 NL Psych Exam: Positive: Mental status NL, Mood NL Vital Signs Vital Signs Date Time Temp Pulse Resp B/P (MAP) Pulse Ox O2 Delivery O2 Flow Rate FiO2 02/20/20 23:01 99.3 02/20/20 21:15 109 22 182/88 87 Room Air Laboratory Data Labs 24H Laboratory Tests 2 02/20/20 21:12: Immature Granulocyte % (Auto) 0.5, Neutrophils (%) (Auto) 76.7H, Lymphocytes (%) (Auto) 14.6L, Monocytes (%) (Auto) 7.6H, Eosinophils (%) (Auto) 0.3, Basophils (%) (Auto) 0.3, Neutrophils # (Auto) 10.0H, Lymphocytes # (Auto) 1.9, Monocytes # (Auto) 1.0H, Eosinophils # (Auto) 0.0, Basophils # (Auto) 0.0, Nucleated Red Blood Cells % (auto) 0.0, Anion Gap 7L, Glomerular Filtration Rate > 60.0, Lactic Acid Level 1.4, Calcium Level 8.8, Total Bilirubin 0.6, Direct Bilirubin 0.2, Aspartate Amino Transf (AST/SGOT) 29, Alanine Aminotransferase (ALT/SGPT) 37, Alkaline Phosphatase 111, Total Creatine Kinase 71, Creatine Kinase MB < 1.0, Creatine Kinase MB Relative Index 1.41, Troponin I < 0.02, CP-Jds-Y-Type Natriuretic Peptide 19, Total Protein 7.2, Albumin 3.5, Albumin/Globulin Ratio 0.95L 02/20/20 22:01: POC pH (Misc Panel) 7.376, POC Base Excess (Misc Panel) 4.0H, POC Saturated Percent O2 (Misc) 88L, POC pO2 (Misc Panel) 56.0L, POC pCO2 (Misc Panel) 49.8H, POC HCO3 (Misc Panel) 29.1H, POC Total CO2 (Misc Panel) 31.0H CBC/BMP Laboratory Tests 02/20/20 21:12 Microbiology Microbiology 02/20/20 Respiratory Panel (PCR) - Final, Complete Human Metapneumovirus 02/20/20 Blood Culture, Received Pending 02/20/20 Blood Culture, Received Pending RAD Interpretation STUDY: CT Chest Rad Actions: Report Reviewed, Films Reviewed, Discussed with the pt RAD Interpretation: Other Result Comments: (multiple pulmonary nodules and plaques noted which are unchanged from previous study in September. New mu ltifocal pneumonia noted in left lung field.) Assessment/Plan 74-year-old male presents for worsening dyspnea on exertion. Likely due to multifocal pneumonia which is causing a COPD exacerbation. We'll treat with antibiotics, steroids, and albuterol MDI. Patient currently requiring oxygen at this time. Anticipate discharge in the next 48 hours of symptoms improved. Plan / VTE VTE Prophylaxis Ordered?: Yes Plan Plan Acute hypoxic respiratory failure secondary to COPD exacerbation from multifocal pneumonia ABG consistent with hypoxic respiratory failure and currently requiring supplemental oxygen to maintain saturations greater than 90%. Patient is not on home oxygen. CT chest reveals new multifocal pneumonia that was not present compared to CT scan in September. Patient has elevated white count, low-grade temperatures. Respiratory panel reveals metapneumovirus as well. - Start ceftriaxone and azithromycin every 24 - Start Solu-Medrol 40 mg IV every 8 hours and taper down as tolerated - Supplemental O2 to maintain saturation greater than 90% - Albuterol MDI every 4 hours standing - Follow up pro-calcitonin levels - Follow up sputum culture - Tylenol for fevers - Incentive spirometer 10 times per hour - Place on insulin sliding scale while on steroids - Protonix well on steroids Hypertension Mildly hypertensive on admission. - c/w Losartan 100mg PO daily Hyperlipidemia - Continue with home dose statin Peripheral arterial disease Patient had stent placed several years ago. - Continue aspirin and Plavix Chronic back pain Patient noted to be on Vicodin at home. Ongoing chronic issue. - Percocet when necessary for pain - Flexeril when necessary for spasms Diet: Continue Current Activity: Continue Current Medications: Start Antibiotics, Start Steroids Respiratory: Increase Oxygen Anticipated Discharge: Home HEIDI GRACIA MD Feb 21, 2020 00:37
[2020-02-21] MEDS: cefTRIAXone SOD 1 GM in D5W MINI-BAG PLUS 50 ML IV SCH (02:34)
--- NOTE | 2020-02-21 02:39 | ECGEPIP ---
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
[2020-02-21 03:00] VITALS: BP 136/86
[2020-02-21] MEDS: AZITHROMYCIN INJ 500 MG, VIAL MATE ADAPTER 1 EACH in D5W 250 ML IV SCH (03:26)
[2020-02-21] MEDS: CYCLOBENZAPRINE 10MG TABLET PO PRN ×2 (03:26→17:31)
[2020-02-21] MEDS: PERCOCET 5MG/325MG TAB PO PRN ×5 (03:27→21:13)
[2020-02-21] MEDS: ALBUTEROL 90 MCG/ACT 8GM HFA INHALER INH SCH ×5 (03:35→20:11)
[2020-02-21] MEDS: methylPREDNISolone INJ 40 MG/1 ML VIAL (J2920) IV SCH ×3 (05:36→21:11)
[2020-02-21] MEDS: HEPARIN SOD (PORCINE) 5000 UNITS/ML VIAL (J1644 PER 1000UNITS) SC SCH ×3 (05:36→21:13)
[2020-02-21 06:00] VITALS: BP 138/86
[2020-02-21 08:13] LABS: HEMATOCRIT 46.8 % (42.0-52.0); HEMOGLOBIN 15.4 g/dl (13.5-17.5); MEAN CORPUSCULAR HEMOGLOBIN 29.8 pg (27.0-33.0); MEAN CORPUSCULAR HGB CONC 32.9 g/dl (32.0-36.5); MEAN CORPUSCULAR VOLUME 90.7 fl (80.0-96.0); PLATELET COUNT, AUTOMATED 226 10^3/uL (150-450); RED BLOOD COUNT 5.16 10^6/uL (4.30-6.10); WHITE BLOOD COUNT 13.5 10^3/uL (4.0-10.0)
[2020-02-21] MEDS: DOCUSATE SODIUM 100 MG CAP PO SCH ×2 (08:14→21:11)
[2020-02-21] MEDS: CLOPIDOGREL 75 MG TAB PO SCH (08:14)
[2020-02-21] MEDS: PANTOPRAZOLE 40MG TAB (PROTONIX) PO SCH (08:15)
[2020-02-21] MEDS: MULTIVITAMINS/MINERALS THERAP 1 TAB PO SCH (08:15)
[2020-02-21] MEDS: LOSARTAN 50 MG TAB PO SCH (08:18)
[2020-02-21] MEDS: ASPIRIN 81 MG ENTERIC TAB PO SCH (08:18)
--- NOTE | 2020-02-21 08:21 | REP ---
PORTABLE CHEST X-RAY: Two views. HISTORY: Dyspnea and cough. COMPARISON CHEST X-RAY: January 07, 2019. FINDINGS: There is a granulomatous calcification projecting in the right upper lobe region. Interstitial markings are slightly prominent. This is more pronounced than on the prior study but not new. There is an ill-defined focus of increased density in the left perihilar region inferiorly, which may be a early infiltrate. The heart is not enlarged. Pulmonary vasculature is not increased. There is no evidence of pleural effusion. IMPRESSION: Probable new infiltrate left base. Interstitial markings chronically. Electronically Signed by Reynold Gallardo MD 02/21/2020 10:17 A
[2020-02-21] MEDS: HumaLOG INSULIN (NovoLOG) PER UNIT SC SCH ×4 (08:51→21:00)
--- NOTE | 2020-02-21 11:04 | IPNPDOC ---
Text Note Date of Service The patient was seen on 02/21/20. NOTE SUBJECTIVE: Patient is interviewed and examined in his hospital room on 5Prat. Patient was found to be seated on his bedside, eating breakfast in no acute distress. He continues on 4L of oxygen via NC, he appears comfortable without SOB or difficulty breathing. Pt does not have an oxygen requirement at home. He reports increased hoariness but overall has been feeling better since his admission late last night. He continues to report chronic, bilateral lower back pain and d iscomfort. OBJECTIVE: VITALS: Please see below PHYSICAL EXAMINATION: GEN: Awake, alert, NAD HEENT: NC/AT, EOMI, MMM, neck supple without JVD HEART: RRR, NS1S2, No murmur LUNG: Crackles on L lower base, faint end expiratory wheezing appreciated throughout. ABD: Soft, nontender, nondistended EXTREMITIES: No LE edema/swelling, no calf tenderness. PT/Radial pulses 2+ bilaterally SKIN: No rashes/lesions NEURO: No focal deficits PSYCH: Mood and affect appropriate. ASSESSMENT: Patient is a 74-year-old male presents for worsening dyspnea on exertion. CXR and Chest CT demonstrate new multifocal PNA in left lung in the setting of previously identified multiple pulmonary nodules and plaques, unchanged from prior studies. Likely due to multifocal pneumonia which is causing a COPD exacerbation. We'll treat with antibiotics, steroids, and albuterol MDI. Patient currently requiring oxygen at this time. Anticipate discharge in the next 48 hours of symptoms improved. PLAN: #Acute hypoxic respiratory failure, suspect 2/2 to L-sided multifocal PNA * c/w ceftriaxone and azithromycin, consider transition to PO and de-escalation. * Sputum and blood cultures pending * Imaging reviewed, endocarditis with septic emboli remains on the differential, though very unlikely. No stigmata of endocarditis on examination. * Solumedrol 40 mg IV Q8H, plan to taper * Supplemental O2 to maintain oxygen between 88-92%, continue titrate down and monitor. * Pt has remained afebrile since admission. #HTN * c/w home losartan 100mg PO, PO below goal of 140/90. * continue to follow #HLD * c/w home statin #Peripheral Arterial Disease * s/p stent placement * ASA and plavix #Chronic low back pain * Percocet PRN for pain * Flexeril PRN for spasm DISPOSITION: Anticipate discharge following decreased oxygen requirement and pt remaining afebrile. CODE STATUS: FULL CODE Attending Addendum: I discussed the care and management of this patient with resident in detail and agree with the plan above. VS,Fishbone, I+O VS, Fishbone, I+O Laboratory Tests 02/20/20 21:12 02/21/20 08:02 Vital Signs Date Time Temp Pulse Resp B/P (MAP) Pulse Ox O2 Delivery O2 Flow Rate FiO2 02/21/20 10:05 20 4.0 02/21/20 08:18 141/66 02/21/20 06:00 97.8 98 92 Nasal Cannula I&O- Last 24 Hours up to 6 AM 02/21/20 06:00 Intake Total 665 ml Balance 665 ml DREAD STRICKLAND DO Feb 21, 2020 11:04 SALIMA DANG MD Feb 25, 2020 20:25
[2020-02-21 14:08] VITALS: BP 150/81
[2020-02-21] MEDS: ATORVASTATIN 20 MG TAB PO SCH (21:11)
[2020-02-21 22:00] VITALS: BP 166/78
[2020-02-22] MEDS: cefTRIAXone SOD 1 GM in D5W MINI-BAG PLUS 50 ML IV SCH (00:14)
[2020-02-22] MEDS: AZITHROMYCIN INJ 500 MG, VIAL MATE ADAPTER 1 EACH in D5W 250 ML IV SCH (01:08)
[2020-02-22] MEDS: ALBUTEROL 90 MCG/ACT 8GM HFA INHALER INH SCH ×4 (01:17→19:24)
[2020-02-22] MEDS: PERCOCET 5MG/325MG TAB PO PRN ×5 (02:29→20:35)
[2020-02-22] MEDS: methylPREDNISolone INJ 40 MG/1 ML VIAL (J2920) IV SCH ×4 (04:01→20:36)
[2020-02-22] MEDS: HEPARIN SOD (PORCINE) 5000 UNITS/ML VIAL (J1644 PER 1000UNITS) SC SCH ×3 (05:09→20:38)
[2020-02-22 05:34] LABS: HEMATOCRIT 44.6 % (42.0-52.0); HEMOGLOBIN 15.1 g/dl (13.5-17.5); MEAN CORPUSCULAR HEMOGLOBIN 30.7 pg (27.0-33.0); MEAN CORPUSCULAR HGB CONC 33.9 g/dl (32.0-36.5); MEAN CORPUSCULAR VOLUME 90.7 fl (80.0-96.0); PLATELET COUNT, AUTOMATED 279 10^3/uL (150-450); RED BLOOD COUNT 4.92 10^6/uL (4.30-6.10); WHITE BLOOD COUNT 18.8 10^3/uL (4.0-10.0)
[2020-02-22 06:00] VITALS: BP 161/80
[2020-02-22 06:04] LABS: ALBUMIN 3.2 GM/DL (3.2-5.2); ALT/SGPT 32 U/L (12-78); BILIRUBIN,TOTAL 0.4 MG/DL (0.2-1.0); BLOOD UREA NITROGEN 20 MG/DL (7-18); CARBON DIOXIDE LEVEL 27 MEQ/L (21-32); CHLORIDE LEVEL 102 MEQ/L (98-107); CREATININE FOR GFR 0.74 MG/DL (0.70-1.30); GLOMERULAR FILTRATION RATE > 60.0 (>42); GLUCOSE, FASTING 162 MG/DL (70-100); SODIUM LEVEL 137 MEQ/L (136-145); TOTAL PROTEIN 7.1 GM/DL (6.4-8.2)
[2020-02-22] MEDS: CYCLOBENZAPRINE 10MG TABLET PO PRN ×2 (06:54→13:37)
[2020-02-22] MEDS: HumaLOG INSULIN (NovoLOG) PER UNIT SC SCH ×5 (07:30→20:22)
[2020-02-22] MEDS: MULTIVITAMINS/MINERALS THERAP 1 TAB PO SCH (08:32)
[2020-02-22] MEDS: CLOPIDOGREL 75 MG TAB PO SCH (08:32)
[2020-02-22] MEDS: PANTOPRAZOLE 40MG TAB (PROTONIX) PO SCH (08:32)
[2020-02-22] MEDS: DOCUSATE SODIUM 100 MG CAP PO SCH ×2 (08:32→20:36)
[2020-02-22] MEDS: ASPIRIN 81 MG ENTERIC TAB PO SCH (08:32)
[2020-02-22] MEDS: LOSARTAN 50 MG TAB PO SCH (08:33)
--- NOTE | 2020-02-22 10:07 | IPNPDOC ---
Text Note Date of Service The patient was seen on 02/22/20. NOTE SUBJECTIVE: Patient is interviewed and examined in his hospital room on 5Prat. Patient was found to be seated in bed eating breakfast in no acute distress. He continues on 3L of oxygen via NC, he appears comfortable without SOB or difficulty breathing. Pt does not have an oxygen requirement at home. Contiues to report improvement and states that he feels ready for discharge. OBJECTIVE: VITALS: Please see below PHYSICAL EXAMINATION: GEN: Awake, alert, NAD HEENT: NC/AT, EOMI, MMM, neck supple without JVD HEART: RRR, NS1S2, No murmur LUNG: Crackles on L lower base, unchanged from yesterday. Faint end expiratory wheezing in upper lobes bilaterally. ABD: Soft, nontender, nondistended EXTREMITIES: No LE edema/swelling, no calf tenderness. PT/Radial pulses 2+ bilaterally SKIN: No rashes/lesions NEURO: No focal deficits PSYCH: Mood and affect appropriate. ASSESSMENT: Patient is a 74-year-old male presents for worsening dyspnea on exertion. CXR and Chest CT demonstrate new multifocal PNA in left lung in the setting of previously identified multiple pulmonary nodules and plaques, unchanged from prior studies. Likely due to multifocal pneumonia which is causing a COPD exacerbation. We'll treat with antibiotics, steroids, and albuterol MDI. Patient currently requiring oxygen at this time, decreased from 4L to 2L this morning. Anticipate discharge in the next 48 hours of symptoms improved. PLAN: #Acute hypoxic respiratory failure, suspect 2/2 to L-sided multifocal PNA * c/w ceftriaxone and azithromycin, consider transition to PO and de-escalation. * Pro-calcitonin negative. * Sputum pending * Blood cultures negative after 24 hours. * Solumedrol 40 mg IV Q8H, will taper once improvement noted. * Supplemental O2 to maintain oxygen between 88-92%, continue titrate down and monitor. * Pt has remained afebrile since admission. #HTN * c/w home losartan 100mg PO, PO below goal of 140/90. * continue to follow #HLD * c/w home statin #Peripheral Arterial Disease * s/p stent placement * ASA and Plavix #Chronic low back pain * Percocet PRN for pain * Flexeril PRN for spasm #Deconditioning * Pt de-sated to low 80s with ambulation yesterday * Continue to work with PT/OT for clearance. DISPOSITION: Anticipate discharge following decreased oxygen requirement, pt remaining afebrile, and PT clearance. CODE STATUS: FULL CODE Attending Addendum: I discussed the care and management of this patient with resident in detail and agree with the plan above. VS,Fishbone, I+O VS, Fishbone, I+O Laboratory Tests 02/22/20 05:15 Vital Signs Date Time Temp Pulse Resp B/P (MAP) Pulse Ox O2 Delivery O2 Flow Rate FiO2 02/22/20 09:11 1.0 02/22/20 08:33 161/80 02/22/20 08:31 20 02/22/20 06:55 92 94 Nasal Cannula 02/22/20 06:00 99.1 I&O- Last 24 Hours up to 6 AM 02/22/20 06:00 Intake Total 2585 ml Output Total 0 ml Balance 2585 ml DREAD STRICKLAND DO Feb 22, 2020 10:07 SALIMA DANG MD Feb 25, 2020 20:26
[2020-02-22 10:15] LABS: HEMOGLOBIN A1c 6.9 %
[2020-02-22 13:51] VITALS: BP 161/83
[2020-02-22] MEDS: ATORVASTATIN 20 MG TAB PO SCH (20:36)
[2020-02-22 22:00] VITALS: BP 125/72
[2020-02-23] MEDS: cefTRIAXone SOD 1 GM in D5W MINI-BAG PLUS 50 ML IV SCH (00:27)
[2020-02-23] MEDS: PERCOCET 5MG/325MG TAB PO PRN ×3 (01:03→09:19)
[2020-02-23] MEDS: CYCLOBENZAPRINE 10MG TABLET PO PRN ×2 (01:03→09:18)
[2020-02-23] MEDS: AZITHROMYCIN INJ 500 MG, VIAL MATE ADAPTER 1 EACH in D5W 250 ML IV SCH (01:03)
[2020-02-23] MEDS: ALBUTEROL 90 MCG/ACT 8GM HFA INHALER INH SCH ×2 (01:17→07:19)
[2020-02-23] MEDS: methylPREDNISolone INJ 40 MG/1 ML VIAL (J2920) IV SCH (05:17)
[2020-02-23] MEDS: HEPARIN SOD (PORCINE) 5000 UNITS/ML VIAL (J1644 PER 1000UNITS) SC SCH (05:17)
[2020-02-23 05:48] LABS: HEMATOCRIT 43.3 % (42.0-52.0); HEMOGLOBIN 14.5 g/dl (13.5-17.5); MEAN CORPUSCULAR HEMOGLOBIN 30.5 pg (27.0-33.0); MEAN CORPUSCULAR HGB CONC 33.5 g/dl (32.0-36.5); PLATELET COUNT, AUTOMATED 296 10^3/uL (150-450); RED BLOOD COUNT 4.76 10^6/uL (4.30-6.10); WHITE BLOOD COUNT 17.2 10^3/uL (4.0-10.0)
[2020-02-23 06:00] VITALS: BP 153/80
[2020-02-23 06:04] LABS: ALT/SGPT 39 U/L (12-78); BILIRUBIN,TOTAL 0.5 MG/DL (0.2-1.0); BLOOD UREA NITROGEN 21 MG/DL (7-18); CALCIUM LEVEL 8.8 MG/DL (8.8-10.2); CARBON DIOXIDE LEVEL 30 MEQ/L (21-32); CHLORIDE LEVEL 103 MEQ/L (98-107); CREATININE FOR GFR 0.72 MG/DL (0.70-1.30); GLOMERULAR FILTRATION RATE > 60.0 (>42); GLUCOSE, FASTING 131 MG/DL (70-100); POTASSIUM SERUM 4.1 MEQ/L (3.5-5.1); SODIUM LEVEL 138 MEQ/L (136-145); TOTAL PROTEIN 7.1 GM/DL (6.4-8.2)
[2020-02-23] MEDS: ASPIRIN 81 MG ENTERIC TAB PO SCH (07:45)
[2020-02-23] MEDS: MULTIVITAMINS/MINERALS THERAP 1 TAB PO SCH (07:45)
[2020-02-23] MEDS: CLOPIDOGREL 75 MG TAB PO SCH (07:45)
[2020-02-23] MEDS: PANTOPRAZOLE 40MG TAB (PROTONIX) PO SCH (07:45)
[2020-02-23] MEDS: DOCUSATE SODIUM 100 MG CAP PO SCH (07:45)
[2020-02-23 07:46] VITALS: BP 153/80
[2020-02-23] MEDS: LOSARTAN 50 MG TAB PO SCH (07:46)
[2020-02-23] MEDS: HumaLOG INSULIN (NovoLOG) PER UNIT SC SCH (07:47)
[2020-02-23] MEDS ORDERED: INCR1INH INH (09:30)
[2020-02-23] MEDS ORDERED: PRED10TA2 PO (09:30)
[2020-02-23] MEDS ORDERED: LEVO750T13 PO (09:30)
--- NOTE | 2020-02-23 09:36 | DS.PDOC ---
Discharge Summary General Date of Admission Feb 21, 2020 at 00:22 Date of Discharge Feb 23, 2020 Primary Care Physician: Praveen Bustamante MD Attending Physician: SALIMA DANG MD Discharge Summary PROCEDURES PERFORMED DURING STAY: None ADMITTING DIAGNOSES: Acute hypoxic respiratory failure, secondary to COPD exacerbation for multifocal pneumonia HTN HLD PAD Chronic back pain DISCHARGE DIAGNOSES: Left-sided multifocal PNA Suspected COPD with exacerbation DM, A1c of 6.9 Pulmonary Nodules HTN HLD PAD Chronic low back pain Deconditioning COMPLICATIONS/CHIEF COMPLAINT: Multifocal Pneumonia, Copd Exacerbation. HISTORY OF PRESENT ILLNESS: 74-year-old male with past medical history of hypertension, hyperlipidemia for GI bleed presents for worsening dyspnea on exertion over the past 2 days. Patient reports that he was in his normal state of health approximately 2 days ago when he began to experience labored breathing. He says that he was unable to walk as far as his previous baseline. He also noted some worsening cough and some increased wheezing. Patient denied any recent fevers, chills but did endorse having some sweats that was unusual for him. Patient reports multiple sick contacts within his house as he lives with his 9 children. There has been some upper respiratory infection-like symptoms in 3 of his kids. This morning, patient was unable to ambulate further than 20 feet and was severely short of breath. He used the albuterol inhaler approximately 4-5 times with little relief. Given his symptoms, his told him to go to the ER for further evaluation. His cough is sometimes productive with brown sputum. He denies any chest pain, palpitations, headaches, abdominal pain, diarrhea, constipation, leg swelling. HOSPITAL COURSE: Pt was admitted to the hospital and continued on IV ceftriaxone and azithromycin for suspected CAP. IV steroids for suspected COPD. Throughout the first day of his hospitalization, patient required 4 L of oxygen to maintain his saturations between 88-92%. He was slowly weaned over the coming days while he was continued on IV abx, and IV steroid therapy. Sputum culture positive for S.Pneumoniae. Patient was on RA by the morning of discharge, vitals stable. Pt was cleared by PT. He was ambulated 100 ft without oxygen saturation falling below 88%. He will be continued on 5 days of Levofloxacin for multifocal PNA and should receive prompt outpatient follow-up for re-evaluation. Additionally, patient does have imaging and history consistent with subpleural nodules and question of asbestosis. Lastly, A1c found to be 6.9 during hospitalization. Patient is currently not on any DM medication. Discharge plan was discussed with the patient, including indications to return to the hospital. Patient verbalized understanding via teach-back method. DISCHARGE MEDICATIONS: Please see below. ALLERGIES: Please see below. PHYSICAL EXAMINATION ON DISCHARGE: VITAL SIGNS: Please see below. PHYSICAL EXAMINATION: GEN: Awake, alert, NAD HEENT: NC/AT, EOMI, MMM, neck supple without JVD HEART: RRR, NS1S2, No murmur LUNG: Crackles on L lower base, unchanged from yesterday. Faint end expiratory wheezing in upper lobes bilaterally. ABD: Soft, nontender, nondistended EXTREMITIES: No LE edema/swelling, no calf tenderness. PT/Radial pulses 2+ bilaterally SKIN: No rashes/lesions NEURO: No focal deficits PSYCH: Mood and affect appropriate. LABORATORY DATA: Please see below. IMAGING: CXR (02/20/20): Probable new infiltrate left base, interstitial markings chronically. CT Chest (02/20/20): Patchy infiltrates in the lingula and left lower lobe suggesting multifocal pneumonia. Underlying asbestos-related pleural disease. Multiple subpleural nodules, nonspecific appearance. The largest measures 7 mm. Lala Society recommendations for follow-up and management nodule smaller than 7 mm detected incidentally on CT screening: Less than or equal to 4 mm: The low risk patients no tolerated. High risk patients, follow-up in 12 months. If no change, no further imaging needed. 4-6 mm nodules: Low risk patients, follow- up in 12 months. If no change, no further imaging needed. High risk patients, initial follow-up CT at 6 and 12 months and then at 18-24 months if no change. 6-8 mm nodules: Low risk patients, initial follow-up CT at 6-12 months and then 18-24 months of no change. High risk patients, initial follow-up CT in 3-6 months and then at 9-12 and 24 months of no change. Greater than 8 mm: Low risk patients, follow-up CTs at 3, 9 and 24 months versus dynamic contrast-enhanced CT, PET, and/or biopsy. High-risk patients , same as for low risk patients. PROGNOSIS: Fair ACTIVITY: As tolerated DIET: As tolerated DISCHARGE PLAN: Please continue Abx for an additional 5 days. Please continue Prednisone taper as outlined on prescription. Please utilize Incruse inhaler for suspected COPD. Please follow-up with PCP for further diagnostics and management. Please follow-up with PCP for multiple pulmonary nodules that will require follow-up. Please follow-up with PCP regarding A1c of 6.9, risks/benefits of metformin therapy. Please return to the ED should you experience worsening shortness or breath or fever/chills. Thank you for allowing us to participate in your care. DISPOSITION: Home with self-care and close PCP follow-up. DISCHARGE CONDITION: Stable TIME SPENT ON DISCHARGE: Greater than 35 minutes. Attending Addendum: I discussed the care and management of this patient with resident in detail and agree with the plan above. Vital Signs/I&Os Vital Signs Date Time Temp Pulse Resp B/P (MAP) Pulse Ox O2 Delivery O2 Flow Rate FiO2 02/23/20 09:19 18 Room Air 02/23/20 07:46 153/80 02/23/20 06:00 98.3 82 91 1.0 I&O- Last 24 Hours up to 6 AM 02/23/20 06:00 Intake Total 2940 ml Output Total 0 ml Balance 2940 ml Laboratory Data Labs 24H Laboratory Tests 2 02/22/20 11:38: Bedside Glucose (Misc Panel) 226H 02/22/20 17:29: Bedside Glucose (Misc Panel) 140H 02/22/20 19:57: Bedside Glucose (Misc Panel) 238H 02/23/20 05:16: Nucleated Red Blood Cells % (auto) 0.0, Anion Gap 5L, Glomerular Filtration Rate > 60.0, Calcium Level 8.8, Total Bilirubin 0.5, Aspartate Amino Transf (AST/SGOT) 29, Alanine Aminotransferase (ALT/SGPT) 39, Alkaline Phosphatase 83, Total Protein 7.1, Albumin 3.0L, Albumin/Globulin Ratio 0.73L CBC/BMP Laboratory Tests 02/23/20 05:16 FSBS Laboratory Tests Test 02/22/20 11:38 02/22/20 17:29 02/22/20 19:57 Range/Units Bedside Glucose (Misc Panel) 226 140 238 83-110 MG/DL Microbiology Microbiology 02/21/20 Gram Stain - Final, Resulted 02/21/20 Sputum Culture - Preliminary, Resulted Streptococcus Pneumoniae 02/20/20 Respiratory Panel (PCR) - Final, Complete Human Metapneumovirus 02/20/20 Blood Culture - Preliminary, Resulted No Growth after 48 hours. All Specime... 02/20/20 Blood Culture - Preliminary, Resulted No Growth after 48 hours. All Specime... Discharge Medications Scheduled Aspirin (Aspirin EC) 81 Mg Tab, 81 MG PO DAILY, (Reported) Atorvastatin Calcium (Atorvastatin Calcium) 80 Mg Tab, 80 MG PO QPM, (Reported) TAKES AT DINNER Cholecalciferol (Vitamin D3) (Vitamin D3) 1,000 Unit Tablet, 1,000 UNITS PO DAILY, (Reported) Clopidogrel Bisulfate (Clopidogrel) 75 Mg Tablet, 75 MG PO DAILY, (Reported) Lansoprazole (Prevacid) 30 Mg Cap, 30 MG PO DAILY, (Reported) Levofloxacin (Levofloxacin) 750 Mg Tablet, 1 TAB PO DAILY Losartan Potassium (Losartan Potassium) 100 Mg Tab, 100 MG PO DAILY, (Reported) Multivitamins (Thera M Plus Tablet) 1 Each Tablet, 1 TAB PO DAILY, (Reported) [place]-3/Dha/Epa/Fish Oil ([place]-3 Fish Oil 1,000 mg Sfgl) 1,000 Mg Capsule, 1 CAP PO DAILY, (Reported) Prednisone (Prednisone) 10 Mg Tablet, 10 MG PO TAPER Take 4 tabs daily x 2 days, then 3 tabs daily x 2 days, then 2 tabs daily x 2 days, then 1 tab daily x 2 days and stop Umeclidinium [place] (Incruse Ellipta) 62.5 Mcg Blst.w.dev, 1 PUFF INH DAILY Scheduled PRN Cyclobenzaprine HCl (Cyclobenzaprine HCl) 10 Mg Tab, 10 MG PO QID PRN for MUSCLE SPASMS, (Reported) Hydrocodone/Acetaminophen (Hydrocodone-Acetamin 10-325 mg) 1 Tab Tab, 1 TAB PO Q3HP PRN for PAIN, (Reported) Allergies Coded Allergies: No Known Drug Allergies (Verified Allergy, Unknown, 02/20/20) DREAD STRICKLAND DO Feb 23, 2020 09:36 SALIMA DANG MD Feb 25, 2020 20:31
== END 2020-02-23 10:20 | disposition home or self-care (01) | DRG 190 ==
LOC: M ED 20:46 → M ED INP 02-21 00:22 → ENRESERV 02-21 02:06 → M MS5PR 02-21 02:56
PROVIDERS: ADMIT Internal Medicine; ATTEND Internal Medicine
DX: J44.0 Chronic obstructive pulmonary disease with (acute) lower respiratory infection (principal); J13 Pneumonia due to Streptococcus pneumoniae; J96.01 Acute respiratory failure with hypoxia; J44.1 Chronic obstructive pulmonary disease with (acute) exacerbation; I10 Essential (primary) hypertension; E78.5 Hyperlipidemia, unspecified; M54.5 Low back pain; I73.9 Peripheral vascular disease, unspecified; R91.8 Other nonspecific abnormal finding of lung field; E11.51 Type 2 diabetes mellitus with diabetic peripheral angiopathy without gangrene; F17.200 Nicotine dependence, unspecified, uncomplicated; Z79.82 Long term (current) use of aspirin; Z79.899 Other long term (current) drug therapy; Z77.090 Contact with and (suspected) exposure to asbestos; Z20.828 Contact with and (suspected) exposure to other viral communicable diseases; Z95.820 Peripheral vascular angioplasty status with implants and grafts

== ENCOUNTER → 2020-06-05 | Outpatient (REF) | payer MEDICARE ==
[~2020-06-05] MED LIST changes: +CYCL-707 PO; -CYCL10TA PO; +D31000TA2 PO; +INCR1INH INH; +LEVO750T13 PO; +OMEGCAP4 PO; +PRED10TA2 PO; +VITMTA PO
[2020-06-05 17:00] LABS: ALBUMIN 3.5 GM/DL (3.2-5.2); ALT/SGPT 31 U/L (12-78); BILIRUBIN,TOTAL 0.3 MG/DL (0.2-1.0); BLOOD UREA NITROGEN 15 MG/DL (7-18); CALCIUM LEVEL 8.9 MG/DL (8.8-10.2); CARBON DIOXIDE LEVEL 29 MEQ/L (21-32); CHLORIDE LEVEL 105 MEQ/L (98-107); CHOLESTEROL LEVEL 172 MG/DL (<200); CHOLESTEROL RISK RATIO 4.914 (<5); CREATININE FOR GFR 0.81 MG/DL (0.70-1.30); GLOMERULAR FILTRATION RATE > 60.0 (>42); GLUCOSE, FASTING 106 MG/DL (70-100); HDL CHOLESTEROL 35 MG/DL (>40); LDL CHOLESTEROL 104 MG/DL (<100); NON-HDL-C 137 MG/DL; POTASSIUM SERUM 4.4 MEQ/L (3.5-5.1); SODIUM LEVEL 140 MEQ/L (136-145); TOTAL PROTEIN 7.2 GM/DL (6.4-8.2); TRIGLYCERIDES LEVEL 165 MG/DL (<150)
[2020-06-05 17:34] LABS: MALB URINE SIEMENS 60.6 MG/L; MAU/CREAT RATIO 39.3 MCG/MG (0.0-30.0)
[2020-06-05 18:18] LABS: HEMOGLOBIN A1c 6.1 %
[2020-06-09 05:07] LABS: CODEINE, URINE Negative (Cutoff=100); CREATININE, URINE 160.4 mg/dL (20.0-300.0); HYDROCODONE CONFIRM, URINE 6114 ng/mL (Cutoff=100); HYDROCODONE, URINE Positive (.); HYDROMORPHONE CONFIRM, URINE 3204 ng/mL (Cutoff=100); HYDROMORPHONE, URINE Positive (.); MORPHINE, URINE Negative (Cutoff=100); OPIATES, URINE Positive ng/mL (Cutoff=300)
== END ==
LOC: M SFHCLERA 09:25
PROVIDERS: ATTEND Family Medicine
DX: E11.51 Type 2 diabetes mellitus with diabetic peripheral angiopathy without gangrene (principal); I10 Essential (primary) hypertension; E78.2 Mixed hyperlipidemia; G89.4 Chronic pain syndrome

== ENCOUNTER → 2020-06-07 | Outpatient (REF) | payer MEDICARE ==
[~2020-06-07] MED LIST changes: -D31000TA2 PO; +VITAD1000T PO
[2020-06-07 13:28] LABS: MALB URINE SIEMENS 42.1 MG/L; MAU/CREAT RATIO 33.1 MCG/MG (0.0-30.0)
== END ==
LOC: M SFHCPLAZ 11:24
PROVIDERS: ATTEND Family Medicine
DX: R80.9 Proteinuria, unspecified (principal); G89.4 Chronic pain syndrome

== ENCOUNTER → 2020-08-17 | Outpatient (REF) | payer MEDICARE ==
[~2020-08-17] MED LIST changes: +D31000TA2 PO; -VITAD1000T PO
[2020-08-20 10:37] LABS: HEMOGLOBIN A1c 6.3 %
[2020-08-20 10:42] LABS: MALB URINE SIEMENS 36.6 MG/L; MAU/CREAT RATIO 24.8 MCG/MG (0.0-30.0)
== END ==
LOC: M SFHCPLAZ 10:08
PROVIDERS: ATTEND Family Medicine
DX: E11.51 Type 2 diabetes mellitus with diabetic peripheral angiopathy without gangrene (principal); R80.9 Proteinuria, unspecified

== ENCOUNTER → 2020-08-23 | Outpatient (REF) | payer MEDICARE ==
[2020-08-23 14:11] LABS: MALB URINE SIEMENS 39.7 MG/L; MAU/CREAT RATIO 35.7 MCG/MG (0.0-30.0)
== END ==
LOC: M SFHCPLAZ 13:14
PROVIDERS: ATTEND Family Medicine
DX: R80.9 Proteinuria, unspecified (principal); Z23 Encounter for immunization
CPT/HCPCS: 82043; 90471; 90682; 94010; G0463

== ENCOUNTER → 2020-11-09 | Outpatient (CLI) | payer MEDICARE ==
--- NOTE | 2020-11-09 16:41 | REP ---
INDICATION: ENCOUNTER SCREENING FOR MALIGNANT NEOPLASM LUNG. COMPARISON: Comparison chest CT studies dated 02/18/2017, 05/28/2017, 09/27/2018 and 10/06/2019. TECHNIQUE: The study is performed without IV contrast. The images are presented at lung windowing only. FINDINGS: There are multiple small lung nodules bilaterally, the largest being a right lower lobe lung nodule measuring 8 mm in diameter on image 43. All the other lung nodules are smaller than this. All of these lung nodules are unchanged from all prior studies. The stability of these nodules characterizes them the as category 2 lung nodules with the probability of malignancy less than 1%. There are no new lung nodules. There are no enlarging lung nodules. There are no new masses. There are no infiltrates. There are no pleural effusions. There are multiple pleural calcific plaques as previously. This is consistent with asbestos exposure but should be correlated with the patient's work history. IMPRESSION: Category 2 low-dose lung screening CT of the chest. The probability of malignancy is less than 1%. Depending on risk factors consider annual follow-up low-dose lung screening chest CT. <Electronically signed by Porter Be > 11/09/20 [id number]
== END ==
LOC: M RAD 13:14
PROVIDERS: ATTEND Family Medicine
DX: Z12.2 Encounter for screening for malignant neoplasm of respiratory organs (principal); F17.218 Nicotine dependence, cigarettes, with other nicotine-induced disorders

== ENCOUNTER → 2020-11-29 | Outpatient (REF) | payer MEDICARE ==
[2020-11-29 11:36] LABS: BLOOD UREA NITROGEN 18 MG/DL (7-18); CALCIUM LEVEL 9.5 MG/DL (8.8-10.2); CARBON DIOXIDE LEVEL 29 MEQ/L (21-32); CHLORIDE LEVEL 104 MEQ/L (98-107); CREATININE FOR GFR 0.79 MG/DL (0.70-1.30); GLOMERULAR FILTRATION RATE > 60.0 (>42); GLUCOSE, FASTING 125 MG/DL (70-100); POTASSIUM SERUM 4.7 MEQ/L (3.5-5.1); SODIUM LEVEL 139 MEQ/L (136-145)
[2020-11-29 15:12] LABS: HEMOGLOBIN A1c 6.2 %
== END ==
LOC: M SFHCPLAZ 09:17
PROVIDERS: ATTEND Family Medicine
DX: R73.02 Impaired glucose tolerance (oral) (principal); I10 Essential (primary) hypertension
CPT/HCPCS: 36415; 80048; 83036; G0463

== ENCOUNTER → 2021-04-19 | Outpatient (CLI) | payer MEDICARE ==
--- NOTE | 2021-04-23 09:43 | ECHO ---
ECHOCARDIOGRAM DATE OF PROCEDURE: 04/19/2021 Age: 75 Gender: Male Height: 68 inches Weight: 234 pounds Body surface area: 2.81 m2 PATIENT LOCATION: Outpatient. REFERRING PHYSICIAN: Praveen Bustamante M.D. INDICATION: Pleural effusion. MEASUREMENTS: 2D Measurements: RV 4.4 cm LV 4.2 cm Septum 1.2 cm Posterior wall 1.2 cm Aortic Root 3.4 cm Ascending aorta 3.9 cm LA 4.0 cm LVEF 75% Doppler Measurements: AV 1.05 m/s LVOT 0.86 m/s LVOT diameter 2.1 cm MV-E 56, A 72, E/A ratio 0.8 Early mitral deceleration time 327 msec E prime medial 5.1, A prime medial 10, E prime lateral 7.8 Average E/E prime ratio 6.7/PCWP 12.7 mmHg PV 1.0 m/s Pulmonary artery acceleration time 95 msec PASP 39 mmHg IVC 1.8 cm COMMENTS: Normal sinus rhythm with right bundle branch block. Technically difficult study in light of the patient's body habitus, but some diagnostically useful information was still obtained. M-mode and two-dimensional echocardiography was performed with pulse, continuous wave, color flow, and tissue Doppler studies. Borderline concentric left ventricular hypertrophy with hyperkinetic wall motion. Mildly dilated left atrium with grade 1 LV diastolic dysfunction, but currently normal estimated mean left atrial pressure. Mildly dilated right heart chambers with normal wall motion and Doppler evidence of at least [id number] pulmonary hypertension. Normal IVC size with reduced respiratory collapse consistent with an estimated central venous pressure at least upper limits of normal to slightly increased. Normal aortic root size, but slightly dilated ascending aorta. Marginal aortic valvular sclerosis without functional abnormality. Subtle mitral annular calcification without functional abnormality. Normal appearing tricuspid valve with trace insufficiency. No apparent intracardiac mass or pericardial effusion. MTDD
== END ==
LOC: M CARPUL 08:04
PROVIDERS: ATTEND Family Medicine
DX: J90 Pleural effusion, not elsewhere classified (principal)

== ENCOUNTER → 2021-06-12 | Outpatient (CLI) | payer MEDICARE ==
[2021-06-12 14:51] LABS: HEMATOCRIT 45.7 % (42.0-52.0); HEMOGLOBIN 14.9 g/dl (13.5-17.5); MEAN CORPUSCULAR HEMOGLOBIN 30.8 pg (27.0-33.0); MEAN CORPUSCULAR HGB CONC 32.6 g/dl (32.0-36.5); MEAN CORPUSCULAR VOLUME 94.6 fl (80.0-96.0); PLATELET COUNT, AUTOMATED 298 10^3/uL (150-450); RED BLOOD COUNT 4.83 10^6/uL (4.30-6.10); WHITE BLOOD COUNT 9.4 10^3/uL (4.0-10.0)
[2021-06-12 15:36] LABS: HEMOGLOBIN A1c 6.2 %
== END ==
LOC: M PLALAB 10:46
PROVIDERS: ATTEND Family Medicine
DX: J90 Pleural effusion, not elsewhere classified (principal); E11.9 Type 2 diabetes mellitus without complications

== ENCOUNTER → 2021-12-12 | Outpatient (CLI) | payer MEDICARE ==
[~2021-12-12] MED LIST changes: +LOSA100T45 PO; -LOSA100T50 PO
[2021-12-12 11:12] LABS: HEMOGLOBIN A1c 6.1 %
[2021-12-12 11:20] LABS: ALBUMIN 3.8 GM/DL (3.2-5.2); ALT/SGPT 27 U/L (12-78); BILIRUBIN,TOTAL 0.5 MG/DL (0.2-1.0); BLOOD UREA NITROGEN 17 MG/DL (7-18); CALCIUM LEVEL 9.3 MG/DL (8.8-10.2); CARBON DIOXIDE LEVEL 30 MEQ/L (21-32); CHLORIDE LEVEL 101 MEQ/L (98-107); CHOLESTEROL LEVEL 151 MG/DL (<200); CHOLESTEROL RISK RATIO 4.194 (<5); CREATININE FOR GFR 0.66 MG/DL (0.70-1.30); GLOMERULAR FILTRATION RATE > 60.0 (>42); GLUCOSE, FASTING 117 MG/DL (70-100); HDL CHOLESTEROL 36 MG/DL (>40); LDL CHOLESTEROL 65 MG/DL (<100); NON-HDL-C 115 MG/DL; SODIUM LEVEL 136 MEQ/L (136-145); TOTAL PROTEIN 7.3 GM/DL (6.4-8.2); TRIGLYCERIDES LEVEL 251 MG/DL (<150)
[2021-12-13 18:09] LABS: TESTOSTERONE FREE (DIRECT) 2.3 pg/mL (6.6-18.1)
== END ==
LOC: M PLALAB 09:24
PROVIDERS: ATTEND Family Medicine
DX: E78.2 Mixed hyperlipidemia (principal); E11.9 Type 2 diabetes mellitus without complications; G89.4 Chronic pain syndrome; N52.9 Male erectile dysfunction, unspecified

== ENCOUNTER → 2022-06-18 | Outpatient (CLI) | payer MEDICARE ==
[~2022-06-18] MED LIST changes: -D31000TA2 PO; +VITA100093 PO
== END ==
LOC: M RAD 12:27
PROVIDERS: ATTEND Family Medicine
DX: Z12.2 Encounter for screening for malignant neoplasm of respiratory organs (principal); F17.210 Nicotine dependence, cigarettes, uncomplicated; J98.4 Other disorders of lung; I70.0 Atherosclerosis of aorta; I25.10 Atherosclerotic heart disease of native coronary artery without angina pectoris

== ENCOUNTER → 2022-12-31 | Outpatient (CLI) | payer MEDICARE ==
[~2022-12-31] MED LIST changes: +LEVO1TAB40 PO; -LEVO750T13 PO
[2022-12-31 13:11] LABS: HEMATOCRIT 46.8 % (42.0-52.0); HEMOGLOBIN 15.5 g/dl (13.5-17.5); MEAN CORPUSCULAR HEMOGLOBIN 30.8 pg (27.0-33.0); MEAN CORPUSCULAR HGB CONC 33.1 g/dl (32.0-36.5); MEAN CORPUSCULAR VOLUME 92.9 fl (80.0-96.0); PLATELET COUNT, AUTOMATED 282 10^3/uL (150-450); RED BLOOD COUNT 5.04 10^6/uL (4.30-6.10); WHITE BLOOD COUNT 8.9 10^3/uL (4.0-10.0)
[2022-12-31 13:44] LABS: CREATININE, URINE 129.6 MG/DL
[2022-12-31 13:47] LABS: ALBUMIN 3.7 G/DL (3.2-5.2); ALKALINE PHOSPHATASE 98 U/L (46-116); ALT/SGPT 33 U/L (7.0-40); AST/SGOT 31 U/L (<34); BILIRUBIN,TOTAL 0.6 MG/DL (0.3-1.2); BLOOD UREA NITROGEN 16 MG/DL (9-23); CARBON DIOXIDE LEVEL 29 MMOL/L (20-31); CHLORIDE LEVEL 101 MMOL/L (98-107); CHOLESTEROL LEVEL 142 MG/DL (<200); CHOLESTEROL RISK RATIO 3.65 (<5); CREATININE FOR GFR 0.51 MG/DL (0.70-1.30); GLOMERULAR FILTRATION RATE > 60.0 (>42); GLUCOSE, FASTING 98 MG/DL (74-106); HDL CHOLESTEROL 38.8 MG/DL (>40); LDL CHOLESTEROL 79.6 MG/DL (<100); NON-HDL-C 103 MG/DL; POTASSIUM SERUM 4.5 MMOL/L (3.5-5.1); SODIUM LEVEL 138 MMOL/L (136-145); TRIGLYCERIDES LEVEL 118 MG/DL (<150)
[2023-01-01 05:28] LABS: HEMOGLOBIN A1c 6.3 % (4.0-6.0)
== END ==
LOC: M LAB 10:35
PROVIDERS: ATTEND Family Medicine
DX: I50.32 Chronic diastolic (congestive) heart failure (principal); E11.29 Type 2 diabetes mellitus with other diabetic kidney complication; I70.1 Atherosclerosis of renal artery; K55.1 Chronic vascular disorders of intestine

== ENCOUNTER → 2023-05-14 | Outpatient (CLI) | payer MEDICARE ==
[~2023-05-14] MED LIST changes: -LOSA100T45 PO; +LOSA100T46 PO
[2023-05-14 15:10] LABS: HEMOGLOBIN A1c 6.1 % (4.0-6.0)
== END ==
LOC: M PLALAB 09:11
PROVIDERS: ATTEND Family Medicine
DX: M96.1 Postlaminectomy syndrome, not elsewhere classified (principal); G89.4 Chronic pain syndrome; E11.42 Type 2 diabetes mellitus with diabetic polyneuropathy

== ENCOUNTER → 2023-08-27 | Outpatient (CLI) | payer MEDICARE ==
[2023-08-27 15:52] LABS: HEMATOCRIT 47.1 % (42.0-52.0); HEMOGLOBIN 15.4 g/dl (13.5-17.5); MEAN CORPUSCULAR HGB CONC 32.7 g/dl (32.0-36.5); MEAN CORPUSCULAR VOLUME 94.8 fl (80.0-96.0); PLATELET COUNT, AUTOMATED 392 10^3/uL (150-450); RED BLOOD COUNT 4.97 10^6/uL (4.30-6.10); WHITE BLOOD COUNT 8.7 10^3/uL (4.0-10.0)
[2023-08-27 16:15] LABS: BLOOD UREA NITROGEN 18 MG/DL (9-23); CALCIUM LEVEL 9.3 MG/DL (8.3-10.6); CARBON DIOXIDE LEVEL 26 MMOL/L (20-31); CHLORIDE LEVEL 104 MMOL/L (98-107); CREATININE FOR GFR 0.52 MG/DL (0.70-1.30); GLOMERULAR FILTRATION RATE > 60.0 (>42); GLUCOSE, FASTING 95 MG/DL (74-106); MAGNESIUM LEVEL 1.8 MG/DL (1.8-2.4); POTASSIUM SERUM 4.3 MMOL/L (3.5-5.1); SODIUM LEVEL 140 MMOL/L (136-145)
[2023-08-27 16:21] LABS: HEMOGLOBIN A1c 5.4 % (4.0-6.0)
== END ==
LOC: M PLALAB 11:04
PROVIDERS: ATTEND Family Medicine
DX: G25.81 Restless legs syndrome (principal); E11.29 Type 2 diabetes mellitus with other diabetic kidney complication

== ENCOUNTER → 2023-10-13 | Outpatient (CLI) | payer MEDICARE | LOC: M RAD 09:28 | PROVIDERS: ATTEND Family Medicine | DX: Z12.2 Encounter for screening for malignant neoplasm of respiratory organs (principal); F17.210 Nicotine dependence, cigarettes, uncomplicated; R91.8 Other nonspecific abnormal finding of lung field ==

== ENCOUNTER → 2024-06-03 | Outpatient (CLI) | payer MEDICARE ==
[2024-06-03 11:33] LABS: HEMATOCRIT 40.7 % (42.0-52.0); MEAN CORPUSCULAR HEMOGLOBIN 28.3 pg (27.0-33.0); MEAN CORPUSCULAR HGB CONC 31.9 g/dl (32.0-36.5); MEAN CORPUSCULAR VOLUME 88.7 fl (80.0-96.0); PLATELET COUNT, AUTOMATED 388 10^3/uL (150-450); RED BLOOD COUNT 4.59 10^6/uL (4.30-6.10); WHITE BLOOD COUNT 8.7 10^3/uL (4.0-10.0)
[2024-06-03 12:05] LABS: CREATININE, URINE 125.2 MG/DL; MAU/CREAT RATIO 16.7 MCG/MG (0.0-30.0)
[2024-06-03 12:06] LABS: ALBUMIN 3.5 G/DL (3.2-5.2); ALKALINE PHOSPHATASE 118 U/L (46-116); ALT/SGPT 14 U/L (7.0-40); AST/SGOT 11 U/L (<34); BILIRUBIN,TOTAL 0.3 MG/DL (0.3-1.2); BLOOD UREA NITROGEN 17 MG/DL (9-23); CALCIUM LEVEL 9.3 MG/DL (8.3-10.6); CARBON DIOXIDE LEVEL 27 MMOL/L (20-31); CHLORIDE LEVEL 106 MMOL/L (98-107); CHOLESTEROL LEVEL 123 MG/DL (<200); CHOLESTEROL RISK RATIO 4.14 (<5); CREATININE FOR GFR 0.55 MG/DL (0.70-1.30); GLOMERULAR FILTRATION RATE > 60.0 (>42); GLUCOSE, FASTING 108 MG/DL (74-106); HDL CHOLESTEROL 29.7 MG/DL (>40); LDL CHOLESTEROL 61.7 MG/DL (<100); NON-HDL-C 93.3 MG/DL; POTASSIUM SERUM 5.1 MMOL/L (3.5-5.1); SODIUM LEVEL 139 MMOL/L (136-145); TOTAL PROTEIN 6.6 G/DL (5.7-8.2); TRIGLYCERIDES LEVEL 158 MG/DL (<150)
[2024-06-03 12:07] LABS: FOLATE > 24.0 NG/ML (>5.4)
[2024-06-03 12:08] LABS: VITAMIN B12 LEVEL 676 PG/ML (211-911)
[2024-06-03 12:40] LABS: HEMOGLOBIN A1c 5.7 % (4.0-6.0)
== END ==
LOC: M PLALAB 08:44
PROVIDERS: ATTEND Family Medicine
DX: E11.29 Type 2 diabetes mellitus with other diabetic kidney complication (principal); E11.42 Type 2 diabetes mellitus with diabetic polyneuropathy; R91.1 Solitary pulmonary nodule; I11.0 Hypertensive heart disease with heart failure; I50.32 Chronic diastolic (congestive) heart failure; E78.2 Mixed hyperlipidemia

== ENCOUNTER → 2024-06-24 | Outpatient (CLI) | payer MEDICARE ==
[~2024-06-24] MED LIST changes: +ISOVUE-370 76% 100ML VIAL ONE
== END ==
LOC: M PLAIMG 10:23
PROVIDERS: ATTEND Student in an Organized Health Care Education/Training Program
DX: R91.1 Solitary pulmonary nodule (principal); I70.0 Atherosclerosis of aorta
CPT/HCPCS: 71270; Q9967

== ENCOUNTER → 2025-06-22 | Outpatient (CLI) | payer MEDICARE ==
[~2025-06-22] MED LIST changes: -ISOVUE-370 76% 100ML VIAL ONE
[2025-06-22 17:00] LABS: BASO # 0.1 10^3/uL (0.0-0.2); BASO % 0.5 % (0.0-1.0); EOS # 0.2 10^3/uL (0.0-0.5); EOS % 1.5 % (0.0-3.0); LYMPH # 3.4 10^3/uL (1.5-5.0); LYMPH % 29.4 % (24.0-44.0); MONO # 1.1 10^3/uL (0.0-0.8); MONO % 9.1 % (2.0-8.0); NEUTROPHILS # 6.9 10^3/uL (1.5-8.5); NEUTROPHILS % 58.9 % (36.0-66.0); PLATELET COUNT, AUTOMATED 474 10^3/uL (150-450)
[2025-06-22 17:11] LABS: ERYTHROCYTE SEDIMENTATION RATE 76 mm/hr (0-20)
== END ==
LOC: M PLALAB 16:09
PROVIDERS: ATTEND Family Medicine
DX: R19.7 Diarrhea, unspecified (principal); R10.2 Pelvic and perineal pain; D64.9 Anemia, unspecified; D72.829 Elevated white blood cell count, unspecified

== ENCOUNTER → 2025-06-23 | Outpatient (REF) | payer MEDICARE | LOC: M SFHCPLAZ 10:35 | PROVIDERS: ATTEND Family Medicine | DX: R10.2 Pelvic and perineal pain (principal); R19.7 Diarrhea, unspecified ==

== ENCOUNTER → 2025-08-31 | Outpatient (REF) | payer MEDICARE | LOC: M SFHCPLAZ 11:29 | PROVIDERS: ATTEND Family Medicine | DX: Z53.9 Procedure and treatment not carried out, unspecified reason (principal) ==

== ENCOUNTER → 2025-08-31 | Outpatient (CLI) | payer MEDICARE ==
[2025-08-31 14:05] LABS: BASO # 0.0 10^3/uL (0.0-0.2); BASO % 0.4 % (0.0-1.0); EOS # 0.1 10^3/uL (0.0-0.5); EOS % 0.8 % (0.0-3.0); LYMPH # 2.4 10^3/uL (1.5-5.0); LYMPH % 23.0 % (24.0-44.0); MONO # 1.0 10^3/uL (0.0-0.8); MONO % 9.9 % (2.0-8.0); NEUTROPHILS # 6.8 10^3/uL (1.5-8.5); NEUTROPHILS % 65.1 % (36.0-66.0); PLATELET COUNT, AUTOMATED 527 10^3/uL (150-450)
[2025-08-31 14:31] LABS: ALT/SGPT 10 U/L (7.0-40); AST/SGOT 13 U/L (<34); C REACTIVE PROTEIN QUANTITATIV 3.05 MG/DL (<1.0); CALCIUM LEVEL 9.1 MG/DL (8.3-10.6); CARBON DIOXIDE LEVEL 26 MMOL/L (20-31); CHLORIDE LEVEL 103 MMOL/L (98-107); CREATININE FOR GFR 0.54 MG/DL (0.70-1.30); GLOMERULAR FILTRATION RATE > 90.0 (>42); POTASSIUM SERUM 5.0 MMOL/L (3.5-5.1); SODIUM LEVEL 139 MMOL/L (136-145)
[2025-08-31 14:58] LABS: ESTIMATED AVERAGE GLUCOSE 120.0 MG/DL (60-110)
== END ==
LOC: M PLALAB 11:44
PROVIDERS: ATTEND Family Medicine
DX: K52.9 Noninfective gastroenteritis and colitis, unspecified (principal); E11.29 Type 2 diabetes mellitus with other diabetic kidney complication

== ENCOUNTER → 2025-11-03 | Outpatient (CLI) | payer MEDICARE ==
[2025-11-03 15:47] LABS: BASO # 0.1 10^3/uL (0.0-0.2); BASO % 0.5 % (0.0-1.0); EOS # 0.1 10^3/uL (0.0-0.5); EOS % 1.3 % (0.0-3.0); LYMPH # 3.0 10^3/uL (1.5-5.0); LYMPH % 32.7 % (24.0-44.0); MONO # 0.8 10^3/uL (0.0-0.8); MONO % 8.9 % (2.0-8.0); NEUTROPHILS # 5.1 10^3/uL (1.5-8.5); NEUTROPHILS % 56.2 % (36.0-66.0); PLATELET COUNT, AUTOMATED 448 10^3/uL (150-450)
[2025-11-03 16:01] LABS: ESTIMATED AVERAGE GLUCOSE 126.0 MG/DL (60-110)
== END ==
LOC: M PLALAB 10:41
PROVIDERS: ATTEND Family Medicine
DX: K62.89 Other specified diseases of anus and rectum (principal); D64.9 Anemia, unspecified; E11.42 Type 2 diabetes mellitus with diabetic polyneuropathy